=== PATIENT | female | born 1950 | race Asian ===

== ENCOUNTER 2017-05-12 00:05 | Inpatient (IN) | payer BC ==
[2017-05-12 00:45] LABS: APPEARANCE,URINE CLEAR; BILIRUBIN,URINE NEGATIVE (NEGATIVE); GLUCOSE, URINE NEGATIVE (NEGATIVE); KETONES,URINE NEGATIVE (NEGATIVE); LEUKOCYTE ESTERASE,URINE NEGATIVE (NEGATIVE); NITRITE,URINE NEGATIVE (NEGATIVE); PROTEIN,URINE NEGATIVE (NEGATIVE); URINE SPECIFIC GRAVITY 1.006; UROBILINOGEN,URINE NEGATIVE mg/dL (<2.0)
[2017-05-12] MEDS ORDERED: METHYLPREDNISOLONE INJ 125 MG/2 ML SDV IV ONE (00:46)
[2017-05-12] MEDS ORDERED: MAGNESIUM SULFATE/D5W 1 GM/100 ML RTUPB IV PRN (00:46)
[2017-05-12] MEDS ORDERED: IPRATROPIUM/ALBUTEROL 0.5-2.5 MG/3 ML AMPUL NEB ONE ×5 (00:46→04:29)
--- NOTE | 2017-05-12 00:51 | ER Document Report ---
ED Respiratory Problem - General Chief Complaint: Chest Pain Stated Complaint: CHEST PAIN,BREATHING PROBLEMS Time Seen by Provider: 05/12/17 00:46 Notes: Patient is a 66-year-old female who is a smoker who comes to emergency department for chief complaint of difficulty breathing, she has had a cough and some shortness of breath for several days but it became significantly worse over the course of yesterday. She denies fever, she states cough is nonproductive, she reports chest pain with cough but not otherwise. She denies vomiting, abdominal pain, dizziness. She denies any daily medications, denies any cardiac or diagnosed pulmonary history, she denies any daily medications. She does not have a primary care provider. - Related Data Allergies/Adverse Reactions: No Known Allergies Allergy (Unverified 05/06/14 17:23) Past Medical History - General Information source: Patient - Social History Smoking Status: Current Every Day Smoker Smoking Education Provided: Yes - <3 min Frequency of alcohol use: None Drug Abuse: None Lives with: Family Family History: Reviewed & Not Pertinent Patient has suicidal ideation: No Patient has homicidal ideation: No Pulmonary Medical History: Reports: Hx Pneumonia Renal/ Medical History: Denies: Hx Peritoneal Dialysis Past Surgical History: Reports: Hx Hysterectomy - complete - Immunizations Hx Diphtheria, Pertussis, Tetanus Vaccination: No Hx Pneumococcal Vaccination: 08/07/12 Review of Systems - Review of Systems Constitutional: No symptoms reported EENT: No symptoms reported Cardiovascular: See HPI Respiratory: See HPI Gastrointestinal: No symptoms reported Genitourinary: No symptoms reported Female Genitourinary: No symptoms reported Musculoskeletal: No symptoms reported Skin: No symptoms reported Hematologic/Lymphatic: No symptoms reported Neurological/Psychological: No symptoms reported Physical Exam - Vital signs Vitals: Temp Pulse Resp BP Pulse Ox 98.6 F 20 L 20 149/79 H 88 L 05/12/17 00:27 05/12/17 00:27 05/12/17 00:27 05/12/17 00:27 05/12/17 00:27 Interpretation: Normal - General General appearance: Alert, Anxious In distress: Mild - HEENT Head: Normocephalic, Atraumatic Eyes: Normal Pupils: PERRL - Respiratory Respiratory status: Respiratory distress, Labored, Tachypnea Breath sounds: Decreased air movement, Nonproductive cough, Rhonchi, Wheezing Chest palpation: Normal - Cardiovascular Rhythm: Regular. No: Tachycardia Heart sounds: Normal auscultation, S1 appreciated, S2 appreciated Murmur: No - Abdominal Inspection: Normal Distension: No distension Bowel sounds: Normal Tenderness: Nontender. No: Tender, Guarding Organomegaly: No organomegaly - Back Back: Normal, Nontender. No: Tender, CVA tenderness - Extremities General upper extremity: Normal inspection, Nontender, Normal color, Normal ROM , Normal temperature General lower extremity: Normal inspection, Nontender, Normal color, Normal ROM , Normal temperature, Normal weight bearing. No: Edema, Gordon's sign - Neurological Neuro grossly intact: Yes Cognition: Normal Orientation: AAOx4 [place] Coma Scale Eye Opening: Spontaneous Skye Coma Scale Verbal: Oriented Skye Coma Scale Motor: Obeys Commands Skye Coma Scale Total: 15 Speech: Normal Motor strength normal: LUE, RUE, LLE, RLE Sensory: Normal - Psychological Associated symptoms: Normal affect, Normal mood - Skin Skin Temperature: Warm Skin Moisture: Dry Skin Color: Normal Course - Re-evaluation Re-evalutation: Patient initially with tachypnea, hypoxia on room air, expiratory wheezes, rhonchi throughout lung castillo. No fever, no tachycardia, no hypotension. Patient immediately placed on 3 L nasal cannula, oxygenation improved to 93-95% . Tachypnea reduced. Given DuoNeb's, magnesium, Solu-Medrol. Afterwards tachypnea resolved but patient continues to have significant wheezing. Chest x-ray unremarkable, laboratory workup unremarkable including venous blood gas. On reevaluation patient is asking if she can leave. I advised that she is still breathing somewhat poorly even though she is improved, patient ambulated and her oxygenation dropped down to 84%. Patient agreed to stay after this and states now she does not want to go home. Discussed with Dr. Rangel, internal medicine, patient will be admitted to telemetry. - Vital Signs Vital signs: Temp Pulse Resp BP Pulse Ox 98.6 F 83 19 131/79 H 93 05/12/17 00:27 05/12/17 04:39 05/12/17 04:39 05/12/17 04:01 05/12/17 04:39 - Laboratory Result Diagrams: 05/12/17 01:00 05/12/17 01:00 Laboratory results interpreted by me: 05/12/17 01:00 Creatinine 0.51 L Glucose 146 H Discharge - Discharge Clinical Impression: COPD exacerbation, Hypoxia, Tobacco abuse Condition: Stable Disposition: ADMITTED INPATIENT Admitting Provider: Hospitalist Unit Admitted: Telemetry
[2017-05-12 01:26] LABS: VENOUS BLOOD BASE EXCESS 4.8 mmol/L; VENOUS BLOOD HCO3 31.1 mmol/L (20-32); VENOUS BLOOD PCO2 52.2 mmHg (35-63); VENOUS BLOOD PH 7.39 (7.30-7.42)
[2017-05-12 01:27] LABS: ABSOLUTE EOSINOPHILS # (AUTO) 0.1 10^3/uL (0.0-0.6); ABSOLUTE LYMPHOCYTES (AUTO) 2.2 10^3/uL (0.5-4.7); ABSOLUTE MONOCYTES (AUTO) 0.6 10^3/uL (0.1-1.4); ABSOLUTE NEUT (AUTO) 5.4 10^3/uL (1.7-8.2); BASOPHILS % (AUTO) 0.2 % (0-2); EOSINOPHILS % (AUTO) 1.5 % (0-6); HEMOGLOBIN 14.2 g/dL (12.0-15.5); HGB HCT DIFFERENCE 1.6; MEAN CORPUSCULAR HGB CONC 34.6 g/dL (32.0-36.0); MEAN CORPUSCULAR VOLUME 96 fl (80-97); MONOCYTES % (AUTO) 7.1 % (3-13); RED BLOOD COUNT 4.29 10^6/uL (3.72-5.28); RED CELL DISTRIBUTION WIDTH 13.3 % (11.5-14.0); SEGMENTED NEUTROPHILS % (AUTO) 65.2 % (42-78); WHITE BLOOD COUNT 8.3 10^3/uL (4.0-10.5)
[2017-05-12 01:40] LABS: ALANINE AMINOTRANSFERASE 36 U/L (9-52); ALBUMIN 3.9 g/dL (3.5-5.0); ALKALINE PHOSPHATASE 77 U/L (38-126); ANION GAP 10 (5-19); ASPARTATE AMINO TRANSFERASE 18 U/L (14-36); BILIRUBIN,DIRECT 0.4 mg/dL (0.0-0.4); BILIRUBIN,TOTAL 0.8 mg/dL (0.2-1.3); BLOOD UREA NITROGEN 8 mg/dL (7-20); CALCIUM 9.2 mg/dL (8.4-10.2); CARBON DIOXIDE 28 mmol/L (22-30); CHLORIDE 104 mmol/L (98-107); CREATINE KINASE 56 U/L (30-135); CREATININE RESULT 0.51 mg/dL (0.52-1.25); GLUCOSE 146 mg/dL (75-110); POTASSIUM 3.9 mmol/L (3.6-5.0); SODIUM 142.1 mmol/L (137-145); TOTAL PROTEIN 6.9 g/dL (6.3-8.2)
[2017-05-12 01:51] LABS: CREATINE KINASE MB 0.46 ng/mL (<4.55)
[2017-05-12 01:52] LABS: TROPONIN I < 0.012 ng/mL
--- NOTE | 2017-05-12 02:23 | RADIOLOGY REPORT (SQ) ---
EXAM DESCRIPTION: CHEST SINGLE VIEW CLINICAL HISTORY: 66 years, Female, difficulty breathing COMPARISON: May 06, 2014 chest radiograph. NUMBER OF VIEWS: None TECHNIQUE: [place] portable AP chest radiograph technique. LIMITATIONS: None. FINDINGS: Cardiac size and pulmonary vasculature are normal. Lungs are clear. No pleural effusions or pneumothorax. Bones appear osteopenic. No displaced fractures on this single view. IMPRESSION: Suspect osteopenia. Otherwise, normal portable AP chest radiograph. 2011 [employer]- All Rights Reserved
[2017-05-12] MEDS ORDERED: ACETAMINOPHEN 325 MG TABLET PO PRN (03:45)
[2017-05-12] MEDS ORDERED: PROMETHAZINE HCL 25 MG TABLET PO PRN (03:45)
[2017-05-12] MEDS ORDERED: IPRATROPIUM/ALBUTEROL 0.5-2.5 MG/3 ML AMPUL NEB PRN (03:46)
[2017-05-12] MEDS ORDERED: NORMAL SALINE 1000 ML 1,000 ML IV PRN (03:46)
[2017-05-12] MEDS ORDERED: GUAIFENESIN SYRP 200 MG/10 ML UDC PO PRN (05:16)
[2017-05-12] MEDS ORDERED: ALBUTEROL SULFATE 0.083% NEB 2.5 MG/3 ML AMPUL NEB PRN (05:16)
[2017-05-12] MEDS ORDERED: GLUCAGON,HUMAN RECOMB 1 MG INJ IM PRN (05:17)
[2017-05-12] MEDS ORDERED: DEXTROSE 40% GEL 15 GM TUBE PO PRN ×2 (05:17)
[2017-05-12] MEDS ORDERED: DEXTROSE 50%-WATER 25 GM/50 ML DISP.SYRIN IV PRN ×2 (05:17)
[2017-05-12] MEDS ORDERED: INSULIN LISPRO 100 UNIT/ML 3 ML VIAL SUBCUT PRN (05:17)
[2017-05-12] MEDS ORDERED: AZITHROMYCIN INJ 500 MG VIAL IV PRN (05:43)
--- NOTE | 2017-05-12 05:45 | PDOC H&P ---
History of Present Illness Admission Date/PCP: 05/12/17 03:48 No PCP Patient complains of: Respiratory difficulty History of Present Illness: PRIYANK KAPOOR is a 66 year old oriental female, long-term pack-a-day smoker, and with underlying non home O2 dependent COPD, who presents to the emergency room for evaluation of above complaint. She describes a several day history of mostly dry cough and shortness of breath. Shortness of breath in particular has significantly worsened over the past 24 hours. 92% on room air at rest; mid to upper 80 percentile when walking on room air. Denies fever chills, nausea vomiting, diarrhea or dysuria. Mild brief sharp chest pain, only with a cough. Never intubated for respiratory difficulty. No antibiotic use or hospitalization in the last 3 months. Patient has been discussed with emergency room nurse practitioner who evaluated the patient. Hospitalized basically for 24 hours May 06 - May 07, 2014 under previous primary care provider's service. Discharge diagnoses included atypical chest pain along with COPD exacerbation. History and physical/ discharge summary reviewed. Dictation via voice recognition software. Laboratory results are listed in [facility] and are reviewed. X-ray summary results are listed below, with full report(s) reviewed. . EKG reviewed. Social history/personal habits: . No children. Lives alone. Works at the local [employer]. One pack of cigarettes per day. No alcohol or illicit drug use. No known drug allergies. Home medications none REVIEW OF SYSTEMS: Constitutional: No fever or chills. Eyes: No vision complaints. ENT: No swallowing problems or complaints. Denies hearing loss. Pulmonary: See history and present illness. Cardiovascular: See history and present illness. Gastrointestinal: No current complaints, including nausea or vomiting. Skin: No current complaints, including rashes. Hematologic: Denies easy bruising. Neurologic: No current complaints, including numbness or tingling. Musculoskeletal: No current or chronic joint complaints, such as arthritis. Psychiatric: Denies anxiety or depression. Endocrine: No current complaints, including polyuria. Genitourinary: No current complaints, including dysuria. 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 4 feet 10 inches tall. 71.4 kg. BMI 32.9 kg/m. Blood pressure 131/79. Pulse 95 and regular. 93% saturation on 3 L oxygen per nasal cannula. Respirations are 17 and unlabored. Temperature 98.6. Slightly obese otherwise well-nourished though chronically ill-appearing [place] female who appears a number of years older than her stated age. Appears perhaps slightly fatigued, but awake alert pleasant and cooperative. Skin is warm and slightly moist. No grossly obvious evidence of rash in areas of skin examined. No subcutaneous nodules palpated. ENT: Hearing grossly normal to normal conversation. Tongue midline on protrusion pink and moist. Eyes: No scleral icterus. Pupils equal and reactive to light at 4 mm. [place] conjunctivae. Neck is supple and nontender to gentle active range of motion and palpation. Midline trachea. No palpable thyroid nodule mass enlargement or tenderness. Lymphatic: No palpable cervical or clavicular nodes. Neck and lymphatic exams limited by patient body habitus. Psychiatric: Reasonable insight into acute and chronic medical issues. Oriented to time location and why here. Lungs: Auscultation reveals equal breath sounds bilaterally. No use of accessory respiratory muscles. Coarse breath sounds with inspiratory and expiratory wheezing bilaterally. Coarse Breath sounds are audible without stethoscope. Cardiovascular: Heart regular rate and rhythm, without gallop murmur or rub. No carotid or abdominal aortic bruits. No ankle or pedal edema. Faintly palpable dorsalis pedis pulses. Abdomen:soft somewhat obese nontender with positive bowel sounds. Unable to adequately evaluate abdomen for masses or organomegaly due to body habitus. Extremities: Feet are warm and dry. No calf tenderness to compression. No grossly obvious visual evidence of calf swelling. Gentle manipulation of lower extremities fails to reveal any obvious evidence of injury or instability to knees hips or ankles. Neurologic: Moves upper extremities grossly normally. Patellar reflexes absent. Absent Babinski. Light touch is intact at feet. Dorsiflexion and plantarflexion of feet 5 / 5 and symmetric. Past Medical History Cardiac Medical History: Denies: Atrial Fibrillation, Congestive Heart Failure, Coronary Artery Disease, DVT, Myocardial Infarction, Hyperlipidema, Hypertension, Pulmonary Embolism Pulmonary Medical History: Reports: Chronic Obstructive Pulmonary Disease (COPD) , Pneumonia Denies: Asthma, Sleep Apnea EENT Medical History: Denies: Eyes, Ears, Throat Neurological Medical History: Denies: Hemorrhagic CVA, Ischemic CVA, Seizures Endocrine Medical History: Denies: Diabetes Mellitus Type 1, Diabetes Mellitus Type 2, Hyperthyroidism, Hypothyroidism Renal/ Medical History: Reports: None GI Medical History: Denies: Cirrhosis, Gastroesophageal Reflux Disease, Hepatitis, Peptic Ulcer Disease Musculoskeltal Medical History: Denies: Arthritis Skin Medical History: Reports: None Psychiatric Medical History: Reports: Tobacco Dependency Denies: Alcohol Dependency, Depression, General Anxiety Disorder, Substance Abuse Infectious Medical History: Denies: Hepatitis B, Hepatitis C Past Surgical History Past Surgical History: Reports: Hysterectomy - complete Social History Information Source: Patient, Emergency Med Personnel, [facility] Records Lives with: Alone Smoking Status: Current Every Day Smoker Frequency of Alcohol Use: None Hx Recreational Drug Use: No Hx Prescription Drug Abuse: No - Advance Directive Resuscitation Status: Full Code Surrogate healthcare decision maker:: Uncertain at this point in time. Family History Family History: Reviewed & Not Pertinent Parental Family History Reviewed: Yes - Father of cancer; mother in her 90s , basically healthy Children Family History Reviewed: NA Sibling(s) Family History Reviewed.: Yes - Healthy Medication/Allergy Home Medications: Albuterol Sulfate [Proair HFA] 1 - 2 puff IH Q4 PRN #1 inhaler 05/15/17 Levofloxacin [Levaquin 500 mg Tablet] 500 mg PO DAILY #4 tablet 05/15/17 Methylprednisolone [Medrol Dosepack (4 mg/Tab) 21 Tab/Dosepak] 4 mg PO ASDIR PRN #21 tab.ds.pk 05/15/17 Mometasone/Formoterol [Dulera 100 Mcg/5 Mcg Inhaler] 2 puff IH BID #1 hfa.aer.ad 05/15/17 Allergies/Adverse Reactions: No Known Allergies Allergy (Unverified 05/06/14 17:23) Physical Exam Vital Signs: Temp Pulse Resp BP Pulse Ox 98.6 F 83 19 131/79 H 93 05/12/17 00:27 05/12/17 04:39 05/12/17 04:39 05/12/17 04:01 05/12/17 04:39 Results Impressions: Chest X-Ray 05/12/17 00:50 IMPRESSION: Suspect osteopenia. Otherwise, normal portable AP chest radiograph. 2010 [employer]- All Rights Reserved Assessment & Plan - Diagnosis (1) COPD exacerbation Is this a current diagnosis for this admission?: Yes Plan: Patient will be admitted under COPD exacerbation protocol. Incentive spirometry twice a day. Scheduled DuoNeb's. As needed albuterol nebs. Solu-Medrol. Prevacid for gastritis prophylaxis Antibiotics will consist of intravenous Zithromax and Rocephin. I strongly encouraged patient to notify staff should patient feel that breathing is worsening. Patient is a full code. I have strongly encouraged patient not to get out of bed without notifying staff , to avoid a fall with injury. Knee high SCDs for DVT prophylaxis, along with subcutaneous Lovenox. Impression and plans were discussed with patient who concurs. Time spent in evaluation and management of patient: 68 minutes. (2) Hypoxia Is this a current diagnosis for this admission?: Yes (3) Tobacco abuse Is this a current diagnosis for this admission?: Yes Plan: As needed nicotine patch. - Time Time Spent: 50 to 70 Minutes Medications reviewed and adjusted accordingly: Yes Anticipated discharge: Home Within: within 72 hours - Inpatient Certification Based on my medical assessment, after consideration of the patient's comorbidities, presenting symptoms, or acuity I expect that the services needed warrant INPATIENT care.: Yes I certify that my determination is in accordance with my understanding of Medicare's requirements for reasonable and necessary INPATIENT services [42 CFR 412.3e].: Yes Medical Necessity: Need Close Monitoring Due to Risk of Patient Decompensation, Need For IV Fluids, Need For Continuous Telemetry Monitoring, Need for Nebulizer Therapy and Monitoring of Response, Need for IV Antibiotics, Risk of Complication if Not Cared For in Hospital Post Hospital Care: D/C or Transfer Summary
[2017-05-12] MEDS ORDERED: CEFTRIAXONE 1 GM/D5W RTU 1 GM/50 ML RTUPB IV ONE (06:00)
[2017-05-12] MEDS ORDERED: AZITHROMYCIN 500 MG in DEXTROSE 5%-WATER 250 ML IV ONE (06:00)
[2017-05-12] MEDS: NORMAL SALINE 1000 ML 1,000 ML IV PRN ×2 (06:01→18:46)
[2017-05-12 06:06] LABS: ADD ON TESTING BLD IN LAB ACKNOWLEDGE
[2017-05-12 06:20] LABS: MAGNESIUM 1.9 mg/dL (1.6-2.3)
[2017-05-12 06:52] LABS: VENOUS BLOOD BASE EXCESS 1.3 mmol/L; VENOUS BLOOD HCO3 28.8 mmol/L (20-32); VENOUS BLOOD PCO2 57.1 mmHg (35-63); VENOUS BLOOD PH 7.32 (7.30-7.42)
[2017-05-12] MEDS ORDERED: METHYLPREDNISOLONE INJ 40 MG/1 ML SDV IV ONE (08:00)
[2017-05-12] MEDS: IPRATROPIUM/ALBUTEROL 0.5-2.5 MG/3 ML AMPUL NEB SCH ×3 (08:08→20:34)
[2017-05-12] MEDS ORDERED: INFLUENZA ADLT QUAD (36MOS+) 2017-18 VAC 0.5 ML SYR IM PRN (08:38)
[2017-05-12] MEDS: ENOXAPARIN SODIUM INJ 40 MG/0.4 ML DISP.SYRIN SUBCUT SCH (09:25)
[2017-05-12] MEDS: LANSOPRAZOLE 30 MG TAB.RAP.DR PO SCH ×2 (09:26→17:13)
--- NOTE | 2017-05-12 10:57 | EKG REPORT ---
SEVERITY:- NORMAL ECG - SINUS RHYTHM : Confirmed by: Aminata Peres MD 12-May-2017 10:57:20
--- NOTE | 2017-05-12 10:59 | EKG REPORT ---
SEVERITY:- NORMAL ECG - SINUS RHYTHM : Confirmed by: Aminata Peres MD 12-May-2017 10:57:24
[2017-05-12] MEDS: METHYLPREDNISOLONE INJ 40 MG/1 ML SDV IV SCH ×2 (14:16→21:44)
[2017-05-13 05:37] LABS: ABSOLUTE LYMPHOCYTES (AUTO) 1.4 10^3/uL (0.5-4.7); ABSOLUTE MONOCYTES (AUTO) 0.4 10^3/uL (0.1-1.4); BASOPHILS % (AUTO) 0.2 % (0-2); HEMOGLOBIN 13.2 g/dL (12.0-15.5); HGB HCT DIFFERENCE 0.6; LYMPHOCYTES % (AUTO) 12.8 % (13-45); MEAN CORPUSCULAR HEMOGLOBIN 32.3 pg (27.0-33.4); MEAN CORPUSCULAR HGB CONC 33.8 g/dL (32.0-36.0); MEAN CORPUSCULAR VOLUME 96 fl (80-97); MONOCYTES % (AUTO) 3.9 % (3-13); RED BLOOD COUNT 4.08 10^6/uL (3.72-5.28); RED CELL DISTRIBUTION WIDTH 13.3 % (11.5-14.0); SEGMENTED NEUTROPHILS % (AUTO) 83.1 % (42-78); WHITE BLOOD COUNT 10.8 10^3/uL (4.0-10.5)
[2017-05-13 06:04] LABS: ANION GAP 10 (5-19); BLOOD UREA NITROGEN 15 mg/dL (7-20); CALCIUM 9.3 mg/dL (8.4-10.2); CARBON DIOXIDE 25 mmol/L (22-30); CHLORIDE 106 mmol/L (98-107); CREATININE RESULT 0.42 mg/dL (0.52-1.25); GLUCOSE 147 mg/dL (75-110); POTASSIUM 4.4 mmol/L (3.6-5.0)
[2017-05-13] MEDS: LANSOPRAZOLE 30 MG TAB.RAP.DR PO SCH ×2 (06:39→17:10)
[2017-05-13] MEDS: CEFTRIAXONE 1 GM/D5W RTU 1 GM/50 ML RTUPB IV SCH (06:40)
[2017-05-13] MEDS: METHYLPREDNISOLONE INJ 40 MG/1 ML SDV IV SCH ×3 (06:40→22:37)
[2017-05-13] MEDS: IPRATROPIUM/ALBUTEROL 0.5-2.5 MG/3 ML AMPUL NEB SCH ×3 (08:05→20:12)
[2017-05-13] MEDS: AZITHROMYCIN 500 MG in DEXTROSE 5%-WATER 250 ML IV SCH (08:56)
[2017-05-13] MEDS: ENOXAPARIN SODIUM INJ 40 MG/0.4 ML DISP.SYRIN SUBCUT SCH (10:22)
--- NOTE | 2017-05-13 15:50 | PDOC PROGRESS REPORT ---
Subjective Progress Note for:: 05/13/17 Subjective:: Patient states her breathing has improved. Patient states that she is able to take in deeper breaths. Patient states that she still is coughing quite frequently and occasionally coughing up phlegm. Physical Exam Vital Signs: Temp Pulse Resp BP Pulse Ox 98.0 F 89 24 H 128/71 H 94 05/13/17 12:05 05/13/17 14:14 05/13/17 14:14 05/13/17 12:05 05/13/17 14:30 Intake & Output 05/12/17 05/13/17 05/14/17 06:59 06:59 06:59 Intake Total 3425 1065 Output Total 0 Balance 3425 1065 Weight 74.3 kg General appearance: PRESENT: no acute distress, well-developed, well-nourished Head exam: PRESENT: atraumatic, normocephalic Eye exam: PRESENT: conjunctiva pink, EOMI. ABSENT: scleral icterus Ear exam: PRESENT: normal external ear exam Mouth exam: PRESENT: moist, tongue midline Neck exam: ABSENT: carotid bruit, JVD, lymphadenopathy, thyromegaly Respiratory exam: PRESENT: other - Positive for prolonged expiratory phase accessory muscle use wheezing heard in all lung castillo and rhonchi Cardiovascular exam: PRESENT: RRR. ABSENT: diastolic murmur, rubs, systolic murmur Pulses: PRESENT: normal dorsalis pedis pul Vascular exam: PRESENT: normal capillary refill GI/Abdominal exam: PRESENT: normal bowel sounds, soft. ABSENT: distended, guarding, mass, organolmegaly, rebound, tenderness Rectal exam: PRESENT: deferred Extremities exam: PRESENT: full ROM. ABSENT: calf tenderness, clubbing, pedal edema Neurological exam: PRESENT: alert, awake, oriented to person, oriented to place , oriented to time, oriented to situation, CN II-XII grossly intact. ABSENT: motor sensory deficit Psychiatric exam: PRESENT: appropriate affect, normal mood. ABSENT: homicidal ideation, suicidal ideation Skin exam: PRESENT: dry, intact, warm. ABSENT: cyanosis, rash Results Laboratory Results: 05/13/17 04:47 05/13/17 04:47 05/13/17 05/13/17 04:47 04:47 WBC 10.8 H RBC 4.08 Hgb 13.2 Hct 39.0 MCV 96 MCH 32.3 MCHC 33.8 RDW 13.3 Plt Count 232 Seg Neutrophils % 83.1 H Lymphocytes % 12.8 L Monocytes % 3.9 Eosinophils % 0.0 Basophils % 0.2 Absolute Neutrophils 9.0 H Absolute Lymphocytes 1.4 Absolute Monocytes 0.4 Absolute Eosinophils 0.0 Absolute Basophils 0.0 Sodium 141.0 Potassium 4.4 Chloride 106 Carbon Dioxide 25 Anion Gap 10 BUN 15 Creatinine 0.42 L Est GFR ( Amer) > 60 Est GFR (Non-Af Amer) > 60 Glucose 147 H Calcium 9.3 Impressions: Chest X-Ray 05/12/17 00:50 IMPRESSION: Suspect osteopenia. Otherwise, normal portable AP chest radiograph. 2010 [employer]- All Rights Reserved Assessment & Plan - Diagnosis (1) Acute respiratory failure with hypoxia Is this a current diagnosis for this admission?: Yes Plan: Secondary to COPD exacerbation: We will continue with steroids, breathing treatments, and antibiotics. (2) COPD exacerbation Is this a current diagnosis for this admission?: Yes Plan: Acute exacerbation of COPD: We will continue steroids, breathing treatments, and antibiotics. (3) Hyperglycemia Is this a current diagnosis for this admission?: Yes Plan: Most likely secondary to steroids: Will check hemoglobin A1c. Patient could possibly have glucose intolerance. (4) Tobacco abuse Is this a current diagnosis for this admission?: Yes Plan: Encourage discontinuation of tobacco use. (5) Chronic obstructive lung disease Is this a current diagnosis for this admission?: Yes Plan: Suspect COPD: Patient will need to follow with pulmonary as outpatient for PFTs. (6) DVT prophylaxis Is this a current diagnosis for this admission?: Yes Plan: Lovenox - Time Time Spent with patient: 15-24 minutes Anticipated discharge: Home - Inpatient Certification Medical Necessity: Need for Nebulizer Therapy and Monitoring of Response, Risk of Diagnosis Which Will Require Inpatient Eval/Care/Monitoring
[2017-05-14 05:10] LABS: ABSOLUTE LYMPHOCYTES (AUTO) 1.6 10^3/uL (0.5-4.7); ABSOLUTE MONOCYTES (AUTO) 0.2 10^3/uL (0.1-1.4); ABSOLUTE NEUT (AUTO) 8.7 10^3/uL (1.7-8.2); BASOPHILS % (AUTO) 0.5 % (0-2); HEMATOCRIT 42.8 % (36.0-47.0); HEMOGLOBIN 14.5 g/dL (12.0-15.5); HGB HCT DIFFERENCE 0.7; LYMPHOCYTES % (AUTO) 15.5 % (13-45); MEAN CORPUSCULAR HEMOGLOBIN 32.7 pg (27.0-33.4); MEAN CORPUSCULAR HGB CONC 33.9 g/dL (32.0-36.0); MEAN CORPUSCULAR VOLUME 97 fl (80-97); MONOCYTES % (AUTO) 2.2 % (3-13); RED BLOOD COUNT 4.43 10^6/uL (3.72-5.28); RED CELL DISTRIBUTION WIDTH 13.4 % (11.5-14.0); SEGMENTED NEUTROPHILS % (AUTO) 81.8 % (42-78); WHITE BLOOD COUNT 10.6 10^3/uL (4.0-10.5)
[2017-05-14 05:23] LABS: ANION GAP 14 (5-19); BLOOD UREA NITROGEN 18 mg/dL (7-20); CALCIUM 9.4 mg/dL (8.4-10.2); CARBON DIOXIDE 28 mmol/L (22-30); CHLORIDE 102 mmol/L (98-107); CREATININE RESULT 0.49 mg/dL (0.52-1.25); GLUCOSE 142 mg/dL (75-110); POTASSIUM 4.3 mmol/L (3.6-5.0); SODIUM 143.9 mmol/L (137-145)
[2017-05-14] MEDS: LANSOPRAZOLE 30 MG TAB.RAP.DR PO SCH ×2 (05:32→17:55)
[2017-05-14] MEDS: CEFTRIAXONE 1 GM/D5W RTU 1 GM/50 ML RTUPB IV SCH (05:32)
[2017-05-14] MEDS: METHYLPREDNISOLONE INJ 40 MG/1 ML SDV IV SCH ×3 (05:32→22:13)
[2017-05-14] MEDS: AZITHROMYCIN 500 MG in DEXTROSE 5%-WATER 250 ML IV SCH (06:49)
[2017-05-14] MEDS: IPRATROPIUM/ALBUTEROL 0.5-2.5 MG/3 ML AMPUL NEB SCH ×3 (08:41→20:14)
[2017-05-14] MEDS: ENOXAPARIN SODIUM INJ 40 MG/0.4 ML DISP.SYRIN SUBCUT SCH (09:54)
--- NOTE | 2017-05-14 14:53 | PDOC PROGRESS REPORT ---
Subjective Progress Note for:: 05/14/17 Subjective:: Pt states that she is feeling better. Pt states that she wants to get home to her dog soon. Physical Exam Vital Signs: Temp Pulse Resp BP Pulse Ox 98.2 F 65 20 132/64 H 93 05/14/17 11:19 05/14/17 14:00 05/14/17 11:19 05/14/17 11:19 05/14/17 11:19 Intake & Output 05/13/17 05/14/17 05/15/17 06:59 06:59 06:59 Intake Total 3425 2133 237 Output Total 0 Balance 3425 2133 237 Weight 74.3 kg 75.2 kg General appearance: PRESENT: no acute distress, well-developed, well-nourished Head exam: PRESENT: atraumatic, normocephalic Eye exam: PRESENT: conjunctiva pink, EOMI. ABSENT: scleral icterus Ear exam: PRESENT: normal external ear exam Mouth exam: PRESENT: moist, tongue midline Neck exam: ABSENT: carotid bruit, JVD, lymphadenopathy, thyromegaly Respiratory exam: PRESENT: decreased breath sounds, prolonged expiratory phas, wheezes Cardiovascular exam: PRESENT: RRR. ABSENT: diastolic murmur, rubs, systolic murmur Pulses: PRESENT: normal dorsalis pedis pul Vascular exam: PRESENT: normal capillary refill GI/Abdominal exam: PRESENT: normal bowel sounds, soft. ABSENT: distended, guarding, mass, organolmegaly, rebound, tenderness Rectal exam: PRESENT: deferred Extremities exam: PRESENT: full ROM. ABSENT: calf tenderness, clubbing, pedal edema Neurological exam: PRESENT: alert, awake, oriented to person, oriented to place , oriented to time, oriented to situation, CN II-XII grossly intact. ABSENT: motor sensory deficit Psychiatric exam: PRESENT: appropriate affect, normal mood. ABSENT: homicidal ideation, suicidal ideation Skin exam: PRESENT: dry, intact, warm. ABSENT: cyanosis, rash Results Laboratory Results: 05/14/17 04:58 05/14/17 04:58 05/14/17 05/14/17 04:58 04:58 WBC 10.6 H RBC 4.43 Hgb 14.5 Hct 42.8 MCV 97 MCH 32.7 MCHC 33.9 RDW 13.4 Plt Count 314 Seg Neutrophils % 81.8 H Lymphocytes % 15.5 Monocytes % 2.2 L Eosinophils % 0.0 Basophils % 0.5 Absolute Neutrophils 8.7 H Absolute Lymphocytes 1.6 Absolute Monocytes 0.2 Absolute Eosinophils 0.0 Absolute Basophils 0.0 Sodium 143.9 Potassium 4.3 Chloride 102 Carbon Dioxide 28 Anion Gap 14 BUN 18 Creatinine 0.49 L Est GFR ( Amer) > 60 Est GFR (Non-Af Amer) > 60 Glucose 142 H Calcium 9.4 05/12/17 08:30 Sputum Sputum Culture - Final Normal [place] Impressions: Chest X-Ray 05/12/17 00:50 IMPRESSION: Suspect osteopenia. Otherwise, normal portable AP chest radiograph. 2010 [employer]- All Rights Reserved Assessment & Plan - Diagnosis (1) Acute respiratory failure with hypoxia Is this a current diagnosis for this admission?: Yes Plan: Secondary to COPD exacerbation: We will continue with steroids, breathing treatments, and antibiotics. (2) COPD exacerbation Is this a current diagnosis for this admission?: Yes Plan: Acute exacerbation of COPD: We will continue steroids, breathing treatments, and antibiotics. (3) Hyperglycemia Is this a current diagnosis for this admission?: Yes Plan: Most likely secondary to steroids: hemoglobin A1c 5.3. (4) Tobacco abuse Is this a current diagnosis for this admission?: Yes Plan: Encourage discontinuation of tobacco use. (5) Chronic obstructive lung disease Is this a current diagnosis for this admission?: Yes Plan: Suspect COPD: Patient will need to follow with pulmonary as outpatient for PFTs. (6) DVT prophylaxis Is this a current diagnosis for this admission?: Yes Plan: Lovenox - Time Time Spent with patient: 15-24 minutes
[2017-05-15 05:20] LABS: ABSOLUTE LYMPHOCYTES (AUTO) 1.4 10^3/uL (0.5-4.7); ABSOLUTE MONOCYTES (AUTO) 0.3 10^3/uL (0.1-1.4); ABSOLUTE NEUT (AUTO) 7.8 10^3/uL (1.7-8.2); BASOPHILS % (AUTO) 0.2 % (0-2); HEMATOCRIT 40.8 % (36.0-47.0); HEMOGLOBIN 13.9 g/dL (12.0-15.5); HGB HCT DIFFERENCE 0.9; LYMPHOCYTES % (AUTO) 14.3 % (13-45); MEAN CORPUSCULAR HEMOGLOBIN 32.4 pg (27.0-33.4); MEAN CORPUSCULAR VOLUME 95 fl (80-97); RED BLOOD COUNT 4.29 10^6/uL (3.72-5.28); RED CELL DISTRIBUTION WIDTH 13.5 % (11.5-14.0); SEGMENTED NEUTROPHILS % (AUTO) 82.5 % (42-78); WHITE BLOOD COUNT 9.5 10^3/uL (4.0-10.5)
[2017-05-15 05:40] LABS: ANION GAP 13 (5-19); BLOOD UREA NITROGEN 18 mg/dL (7-20); CALCIUM 9.2 mg/dL (8.4-10.2); CARBON DIOXIDE 28 mmol/L (22-30); CHLORIDE 102 mmol/L (98-107); CREATININE RESULT 0.47 mg/dL (0.52-1.25); GLUCOSE 148 mg/dL (75-110); POTASSIUM 4.3 mmol/L (3.6-5.0); SODIUM 142.9 mmol/L (137-145)
[2017-05-15] MEDS: METHYLPREDNISOLONE INJ 40 MG/1 ML SDV IV SCH (05:58)
[2017-05-15] MEDS: CEFTRIAXONE 1 GM/D5W RTU 1 GM/50 ML RTUPB IV SCH (05:59)
[2017-05-15] MEDS: LANSOPRAZOLE 30 MG TAB.RAP.DR PO SCH (05:59)
[2017-05-15] MEDS: IPRATROPIUM/ALBUTEROL 0.5-2.5 MG/3 ML AMPUL NEB SCH (08:03)
[2017-05-15] MEDS: AZITHROMYCIN 500 MG in DEXTROSE 5%-WATER 250 ML IV SCH (08:58)
[2017-05-15] MEDS: ENOXAPARIN SODIUM INJ 40 MG/0.4 ML DISP.SYRIN SUBCUT SCH (10:58)
--- NOTE | 2017-05-15 11:02 | PDOC DISCHARGE SUMMARY ---
General - Admit/Disc Date/PCP Admission Date/Primary Care Provider: 05/12/17 05:16 Discharge Date: 05/15/17 - Discharge Diagnosis (1) Acute respiratory failure with hypoxia Is this a current diagnosis for this admission?: Yes Summary: Secondary to acute COPD exacerbation: Patient was admitted to the hospital where she was placed on steroids, breathing treatments and antibiotics. Patient demonstrated significant improvement and therefore was able to be weaned off of oxygen. Patient will be discharged home on oral steroids, antibiotics, and inhalers (2) COPD exacerbation Is this a current diagnosis for this admission?: Yes Summary: Patient was placed on breathing treatments, antibiotics, and steroids. Patient has done well. Patient was weaned off nasal cannula and switched over to oral medications. Patient will need a follow-up with pulmonary as outpatient. (3) Hyperglycemia Is this a current diagnosis for this admission?: Yes Summary: Patient's hemoglobin A1c was 5.8. Patient's hyperglycemia secondary to steroids. (4) Tobacco abuse Is this a current diagnosis for this admission?: Yes Summary: Patient encouraged to discontinue tobacco abuse. (5) Chronic obstructive lung disease Is this a current diagnosis for this admission?: Yes Summary: Patient has not been formally diagnosed with COPD however there is high suspicion that patient does have COPD. Patient will need to follow with pulmonary for pulmonary lung studies. - Additional Information Resuscitation Status: Full Code Discharge Diet: Cardiac Discharge Activity: Activity As Tolerated Home Medications: Albuterol Sulfate [Proair HFA] 1 - 2 puff IH Q4 PRN #1 inhaler 05/15/17 Levofloxacin [Levaquin 500 mg Tablet] 500 mg PO DAILY #4 tablet 05/15/17 Methylprednisolone [Medrol Dosepack (4 mg/Tab) 21 Tab/Dosepak] 4 mg PO ASDIR PRN #21 tab.ds.pk 05/15/17 Mometasone/Formoterol [Dulera 100 Mcg/5 Mcg Inhaler] 2 puff IH BID #1 [email or web address] 05/15/17 History of Present Illness Patient complains of: Shortness of breath History of Present Illness: PRIYANK KAPOOR is a 66 year old female presents with complaint of shortness of breath. Hospital Course Hospital Course: Patient is a 66-year-old female that presents to our facility with shortness of breath. Patient was found to be wheezing and using accessory muscles to breathe. Due to patient's long history of tobacco use high suspicion is for COPD therefore patient was treated for COPD exacerbation. Patient was placed on steroids, breathing treatments, and antibiotics and breathing did improve. Patient also was requiring nasal cannula however patient was able to be weaned off the nasal cannula. Patient was noted to have elevated blood glucose but this was secondary to steroids. Patient's hemoglobin A1c was 5.8. Therefore patient was encouraged to eat foods that were low in sugar and to avoid carbohydrates. Patient has done well throughout hospitalization. On day of discharge patient was ambulating around hallways without any oxygen. Physical Exam Vital Signs: Temp Pulse Resp BP Pulse Ox 97.8 F 63 24 H 151/81 H 99 05/15/17 07:28 05/15/17 08:03 05/15/17 08:03 05/15/17 07:28 05/15/17 08:03 Intake & Output 05/14/17 05/15/17 05/16/17 06:59 06:59 06:59 Intake Total 2133 1348 Balance 2133 1348 Weight 75.2 kg 71 kg General appearance: PRESENT: no acute distress, well-developed, well-nourished Head exam: PRESENT: atraumatic, normocephalic Eye exam: PRESENT: conjunctiva pink, EOMI. ABSENT: scleral icterus Ear exam: PRESENT: normal external ear exam Mouth exam: PRESENT: moist, tongue midline Neck exam: ABSENT: carotid bruit, JVD, lymphadenopathy, thyromegaly Respiratory exam: PRESENT: wheezes, other - Positive for wheezing slight prolonged expiratory phase however much improved. Cardiovascular exam: PRESENT: RRR. ABSENT: diastolic murmur, rubs, systolic murmur Pulses: PRESENT: normal dorsalis pedis pul Vascular exam: PRESENT: normal capillary refill GI/Abdominal exam: PRESENT: normal bowel sounds, soft. ABSENT: distended, guarding, mass, organolmegaly, rebound, tenderness Rectal exam: PRESENT: deferred Extremities exam: PRESENT: full ROM. ABSENT: calf tenderness, clubbing, pedal edema Neurological exam: PRESENT: alert, awake, oriented to person, oriented to place , oriented to time, oriented to situation, CN II-XII grossly intact. ABSENT: motor sensory deficit Psychiatric exam: PRESENT: appropriate affect, normal mood. ABSENT: homicidal ideation, suicidal ideation Skin exam: PRESENT: dry, intact, warm. ABSENT: cyanosis, rash Results Laboratory Results: 05/15/17 04:44 05/15/17 04:44 05/15/17 05/15/17 04:44 04:44 WBC 9.5 RBC 4.29 Hgb 13.9 Hct 40.8 MCV 95 MCH 32.4 MCHC 34.0 RDW 13.5 Plt Count 254 Seg Neutrophils % 82.5 H Lymphocytes % 14.3 Monocytes % 3.0 Eosinophils % 0.0 Basophils % 0.2 Absolute Neutrophils 7.8 Absolute Lymphocytes 1.4 Absolute Monocytes 0.3 Absolute Eosinophils 0.0 Absolute Basophils 0.0 Sodium 142.9 Potassium 4.3 Chloride 102 Carbon Dioxide 28 Anion Gap 13 BUN 18 Creatinine 0.47 L Est GFR ( Amer) > 60 Est GFR (Non-Af Amer) > 60 Glucose 148 H Calcium 9.2 05/12/17 08:30 Sputum Gram Stain - Final 05/12/17 08:30 Sputum Sputum Culture - Final Normal [place] Impressions: Chest X-Ray 05/12/17 00:50 IMPRESSION: Suspect osteopenia. Otherwise, normal portable AP chest radiograph. 2010 [employer]- All Rights Reserved Plan Time Spent: Greater than 30 Minutes - 35 mins
[2017-05-15 13:08] VITALS: BP 135/70
== END 2017-05-15 13:12 | disposition home or self-care (01) | DRG 190 ==
LOC: ER 00:05 → EH 03:48 → UNDOADMIN 03:48 → EH 05:16 → 3W 06:43 → EH 06:43
PROVIDERS: ADMIT Family Medicine; ATTEND Family Medicine
PROC: 3E0F73Z Introduction of Anti-inflammatory into Respiratory Tract, Via Natural or Artificial Opening (ICD-10-PCS; principal; 2017-05-12)
PROC: 3E0234Z Introduction of Serum, Toxoid and Vaccine into Muscle, Percutaneous Approach (ICD-10-PCS; 2017-05-15)
DX: J44.1 Chronic obstructive pulmonary disease with (acute) exacerbation (principal); J96.01 Acute respiratory failure with hypoxia; R73.9 Hyperglycemia, unspecified; T38.0X5A Adverse effect of glucocorticoids and synthetic analogues, initial encounter; M85.80 Other specified disorders of bone density and structure, unspecified site; E66.9 Obesity, unspecified; Z68.32 Body mass index [BMI] 32.0-32.9, adult; F17.200 Nicotine dependence, unspecified, uncomplicated; Z79.899 Other long term (current) drug therapy; Z23 Encounter for immunization; Z99.81 Dependence on supplemental oxygen; Z80.9 Family history of malignant neoplasm, unspecified
CPT/HCPCS: 36415; 71010; 80048; 80053; 81001; 82550; 82553; 82803; 82962; 83036; 83735; 84484; 85025; 87040; 87070; 87205; 90686; 93005; 93010; 94640; 94799; 96365; 96375; 99285; J0456; J0696; J1650; J1815; J2920; J2930; J3475; J3490; J7030; J7060; J7620

== ENCOUNTER 2017-07-27 20:05 | Emergency (ER) | payer BC, MEDICARE ==
--- NOTE | 2017-07-27 22:03 | ER Document Report ---
ED Extremity Problem, Upper - General Chief Complaint: Arm Pain Stated Complaint: RIGHT ARM PAIN Time Seen by Provider: 07/27/17 21:55 Mode of Arrival: Ambulatory Information source: Patient Notes: Patient is a 66-year-old female comes to the emergency room complaining of right arm pain. It is that it started today. 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 Patient is right-handed she has been working with the [email or web address] for quite a while and she goes every day chopping food with her right arm. Patient states it is hard to grab anything now she has some swelling in the wrist area. And it hurts to move it. Patient denies any history of hypertension or diabetes and she is concerned about her arm. She is due to work tomorrow and through the weekend. TRAVEL OUTSIDE OF THE [place] IN LAST 30 DAYS: No - HPI Patient complains to provider of: Pain, Swelling, Elbow, Forearm, Hand, Wrist Onset: This afternoon Recent injury: Possibly Where: Other - Unknown Quality of pain: Sharp, Stabbing, Throbbing, Other - Tingling Severity of pain: Moderate, Severe, Constant, Still present Pain Level: 3 Context: Other - Repetitive motion Associated symptoms: Numbness, Tingling. denies: None, Back pain, Chest pain/ discomfort, Chills, Dizziness, Fainted, Fever, Hurts to breathe, Jaw pain, Nausea, Neck pain, Seizure, Short of breath, Sweating, Vomiting, Other Exacerbated by: Movement Relieved by: Rest Similar symptoms previously: No Recently seen / treated by doctor: No - Related Data Allergies/Adverse Reactions: No Known Allergies Allergy (Unverified 05/06/14 17:23) Past Medical History - General Information source: Patient - Social History Smoking Status: Current Every Day Smoker Cigarette use (# per day): Yes - Half-pack a day Chew tobacco use (# tins/day): No Smoking Education Provided: Yes Frequency of alcohol use: None Drug Abuse: None Family History: Reviewed & Not Pertinent Patient has suicidal ideation: No Patient has homicidal ideation: No - Past Medical History Cardiac Medical History: Denies: Hx Atrial Fibrillation, Hx Congestive Heart Failure, Hx Coronary Artery Disease, Hx DVT, Hx Heart Attack, Hx Hypercholesterolemia, Hx Hypertension, Hx Pulmonary Embolism Pulmonary Medical History: Reports: Hx COPD, Hx Pneumonia Denies: Hx Asthma, Hx Sleep Apnea Neurological Medical History: Denies: Hx Seizures Endocrine Medical History: Denies: Hx Diabetes Mellitus Type 1, Hx Diabetes Mellitus Type 2, Hx Hyperthyroidism, Hx Hypothyroidism Renal/ Medical History: Denies: Hx Peritoneal Dialysis GI Medical History: Denies: Hx Cirrhosis, Hx Gastroesophageal Reflux Disease, Hx Hepatitis Musculoskeltal Medical History: Denies Hx Arthritis Psychiatric Medical History: Denies: Hx Depression Infectious Medical History: Denies: Hx Hepatitis Past Surgical History: Reports: Hx Hysterectomy - Immunizations Hx Diphtheria, Pertussis, Tetanus Vaccination: No Hx Pneumococcal Vaccination: 08/07/12 Review of Systems - Review of Systems Constitutional: No symptoms reported EENT: No symptoms reported Cardiovascular: No symptoms reported Respiratory: No symptoms reported Gastrointestinal: No symptoms reported Genitourinary: No symptoms reported Female Genitourinary: No symptoms reported Musculoskeletal: Joint pain, Joint swelling, Muscle pain, Muscle stiffness Skin: No symptoms reported Hematologic/Lymphatic: No symptoms reported Neurological/Psychological: No symptoms reported -: Yes All other systems reviewed and negative Physical Exam - Vital signs Vitals: Temp Pulse Resp BP Pulse Ox 98.2 F 77 22 H 150/76 H 94 07/27/17 20:27 07/27/17 20:27 07/27/17 20:27 07/27/17 20:27 07/27/17 20:27 Interpretation: Hypertensive - General General appearance: Alert, Other - Uncomfortable appearing In distress: Moderate - Respiratory Respiratory status: No respiratory distress Chest status: Nontender Breath sounds: Normal. No: Decreased air movement, Nonproductive cough, Productive cough, Rales, Rhonchi, Stridor, Wheezing, Other - Cardiovascular Rhythm: Regular Heart sounds: Normal auscultation Murmur: No - Extremities General upper extremity: Tender. No: Normal inspection, Nontender, Edema, Normal color, Normal ROM, Normal strength, Normal temperature, Other General lower extremity: Normal inspection, Normal ROM, Normal weight bearing Elbow: Tender, Limited ROM, Other - Examination of the elbow shows patient has some reproducible tenderness at the medial epicondyle on the elbow. She has numbness that radiates to it when the wrist is bent in extension. Forearm: Tender. No: Normal, Nontender, Abrasion, Deformity, Ecchymosis, Instability, Laceration, Other Wrist: Tender, Limited ROM, Other - Examination patient's right wrist and arm shows that she has some mild swelling that is noted across the entire forearm and wrist area. Patient has decreased suede brusher strength as well. She has a positive Phalen test and a positive Tinel's and median nerve strike she has tenderness at the medial epicondyle on the elbow. Hand: Normal, Other - Patient displays good cap refill in the nailbeds of the right hand. - Neurological Neuro grossly intact: Yes Cognition: Normal Orientation: AAOx4 [place] Coma Scale Eye Opening: Spontaneous [place] Coma Scale Verbal: Oriented [place] Coma Scale Motor: Obeys Commands [place] Coma Scale Total: 15 - Skin Skin Temperature: Warm Skin Moisture: Dry Skin Color: Normal, [place] Course - Vital Signs Vital signs: Temp Pulse Resp BP Pulse Ox 98 F 73 20 151/84 H 93 07/27/17 22:13 07/27/17 22:13 07/27/17 22:13 07/27/17 22:13 07/27/17 22:13 - Transfer of Care Notes: 07/27/17 22:45 Patient has a fairly classic case of carpal tunnel syndrome. She has repetitive motion she has been doing for an extended period of time. Her wrist is somewhat swollen although she has good cap refill in the nailbeds of the fingers. She has the positive test for carpal tunnel. We are placing her in a cock-up splint informed her that she needs to see an orthopedic surgeon and/or her doctor to get a referral to wound. Patient acknowledged. We will send her home with the cock-up splint some steroids and a little pain medication. Procedures - Immobilization Right Wrist Immobilizer type: Cock-up Performed by: PCT Post-Proc Neuro Vasc Exam: Normal Alignment checked and good: Yes Discharge - Discharge Clinical Impression: Carpal tunnel syndrome of right wrist Condition: Good Disposition: HOME, SELF-CARE Instructions: Carpal Tunnel Syndrome ([facility]) Additional Instructions: Use the splint for at least 10-12 days. Limited use of the right arm will help with the pain and discomfort. Ice to the wrist area will also help. Ibuprofen 3 times a day with food. And as we discussed you need to follow-up with an orthopedic physician for possible intervention on this problem. This is not one that is going to go away by itself most of the time unless she rested completely. We will try you on a course of steroids as well to help with the inflammation. Since you are not diabetic this should not affect you too much. Should you have any concerns or problems return to ER for recheck. Prescriptions: Methylprednisolone [Medrol Dosepack (4 mg/Tab) 21 Tab/Dosepak] 4 mg PO ASDIR PRN #21 tab.ds.pk PRN Reason: Forms: Elevated Blood Pressure, Smoking Cessation Education
[2017-07-27 22:13] VITALS: BP 151/84
[2017-07-27] MEDS ORDERED: KETOROLAC TROMETHAMINE 60 MG/2 ML SDV IM ONE (22:36)
[2017-07-27] MEDS ORDERED: HYDROCODONE/ACETAMINOPHEN 5-325 MG TABLET PO ONE (22:36)
[2017-07-27] MEDS ORDERED: KETOROLAC TROMETHAMINE INJ/PF 30 MG/1 ML SDV IM ONE (22:37)
[2017-07-27] MEDS ORDERED: HYDROCODONE/ACETAMINOPHEN 5-325 MG 6 TAB/DSPK PO PRN (22:51)
== END 2017-07-27 23:03 | disposition home or self-care (01) ==
LOC: ER 20:05
DX: G56.01 Carpal tunnel syndrome, right upper limb (principal); J44.9 Chronic obstructive pulmonary disease, unspecified; F17.210 Nicotine dependence, cigarettes, uncomplicated; Z71.6 Tobacco abuse counseling
CPT/HCPCS: 99283; 96372; L3908; J1885

== ENCOUNTER 2018-08-07 11:33 | Emergency (ER) | payer BC, MEDICARE ==
--- NOTE | 2018-08-07 12:55 | ER Document Report ---
ED Medical Screen (RME) - General Chief Complaint: Cough Stated Complaint: DIFFICULTY BREATHING Time Seen by Provider: 08/07/18 12:54 Notes: Patient says she is having difficulty breathing for the past 3 days. She has had a cough which is minimally productive. Believes she has had some intermittent fevers. History of pneumonia about a year ago. Patient has no history of any lung diseases although she smokes a pack of cigarettes a day. Denies any heart disease. TRAVEL OUTSIDE OF THE [place] IN LAST 30 DAYS: No - Related Data Allergies/Adverse Reactions: No Known Allergies Allergy (Unverified 05/06/14 17:23) Past Medical History - Social History Cigarette use (# per day): Yes - Smokes 1 pack of cigarettes a day. Chew tobacco use (# tins/day): No Frequency of alcohol use: None Drug Abuse: None Family history: Reviewed & Not Pertinent Pulmonary Medical History: Reports: Hx COPD, Hx Pneumonia Past Surgical History: Reports: Hx Hysterectomy - Immunizations Hx Diphtheria, Pertussis, Tetanus Vaccination: No History of Influenza Vaccine for 05/2017 - 10/2017 Season: No Review of Systems - Review of Systems Notes: REVIEW OF SYSTEMS: CONSTITUTIONAL : Denies fever. EENT: Denies eye, ear, nose or mouth or throat pain or other symptoms. CARDIOVASCULAR: Denies chest pain. RESPIRATORY: See HPI. GASTROINTESTINAL: Denies abdominal pain or nausea, vomiting, or diarrhea. GENITOURINARY: Denies difficulty or painful urinating, urinary frequency, blood in urine. MUSCULOSKELETAL: Denies back or neck pain. Denies joint pain or swelling. SKIN: Denies rash or skin lesions. NEUROLOGICAL: Denies LOC or altered mental status. Denies headache. Denies sensory loss or motor deficits. ALL OTHER SYSTEMS REVIEWED AND NEGATIVE. Physical Exam - Vital signs Vitals: Temp Pulse Resp BP Pulse Ox 97.9 F 76 24 H 131/77 H 93 08/07/18 11:41 08/07/18 11:41 08/07/18 11:41 08/07/18 11:41 08/07/18 11:41 Interpretation: Normal. No: Hypoxic Notes: PHYSICAL EXAMINATION: GENERAL: Well-appearing, in no acute distress. HEAD: Atraumatic, normocephalic. EYES: Pupils equal round and reactive to light, extraocular movements intact. ENT: oropharynx clear without exudates. Moist mucous membranes. NECK: Normal range of motion, supple. LUNGS: Breath sounds with good exchange of air. Diffuse expiratory wheezes front and back bilaterally but not tight. Does not appear short of breath. HEART: Regular rate and rhythm without murmurs. ABDOMEN: Soft, nontender. No guarding or rebound. No masses. BACK: No tenderness throughout entire back. EXTREMITIES: Normal range of motion without pain. No peripheral edema. Negative Homans bilaterally. NEUROLOGICAL: Normal speech, normal gait. Normal sensory, motor, and reflex exams. Awake, alert, and oriented x3. Cranial nerves normal. PSYCH: Normal mood, normal affect. SKIN: Warm, dry, no rashes. Course - Re-evaluation Re-evalutation: 08/07/18 20:40 Patient was given 60 mg of prednisone p.o. She was given 2 nebulizer treatments, one a DuoNeb and the second for albuterol alone. Labs were all essentially normal. Chest x-ray interpretation elsewhere in this report. Patient's lungs revealed only a few scattered wheezes after the second neb and it was felt that she could be discharged. She was encouraged to stop smoking. - Vital Signs Vital signs: Temp Pulse Resp BP Pulse Ox 98.6 F 85 20 114/63 92 08/07/18 14:52 08/07/18 14:52 08/07/18 14:52 08/07/18 14:52 08/07/18 14:52 - Laboratory Result Diagrams: 08/07/18 13:07 08/07/18 13:07 Laboratory results interpreted by me: 08/07/18 08/07/18 13:07 13:07 Hgb 16.0 H Hct 47.1 H Creatinine 0.42 L - Diagnostic Test Radiology reviewed: Pending, Image reviewed, Reports reviewed Radiology results interpreted by me: 08/07/18 20:39 Chest x-ray shows "mild diffuse bilateral interstitial pulmonary opacity which may reflect mild edema or atypical/viral infection no local airspace opacity. Patient's clinical presentation does not appear to me to be edema. More than likely it is a viral pulmonary infection. Doctor's Discharge - Discharge Clinical Impression: COPD exacerbation, Bronchitis Condition: Stable Disposition: HOME, SELF-CARE Additional Instructions: Chronic Obstructive Lung Disease You have chronic obstructive lung disease (COPD). The symptoms come from emphysema (damage to small airways, with trapping of air in large sacks in the lung) and chronic bronchitis (repeated infection and damage to larger airways). The cause is almost always cigarette smoking, although dust exposure, asthma, and infections contribute. You should avoid fumes, dust, and smoke (especially tobacco smoke). Your condition will flare from time to time. There is no cure, but the symptoms can be treated. Bronchodilators (asthma medicine) are often helpful. Antibiotics help when infection is present. When shortness of breath is severe, we may prescribe cortisone medication. If medicine doesn't help enough, we can arrange for you to have an oxygen tank at home. Notify your doctor at once if sputum becomes thick, foul, or bloody, if you develop a fever or chest pain, or if your shortness of breath worsens. Bronchitis You have acute bronchitis. This disease is an infection or inflammation of the air passageways in your lungs. Symptoms usually include cough, low grade fever, shortness of breath, and wheezing. The cough usually persists for a couple of weeks. Most cases of bronchitis get better without antibiotics. We prescribe antibiotics when we believe bacteria are damaging your airways, or if there's high risk the bronchitis will worsen into pneumonia. Increase your fluid intake. A cool mist humidifier may make your lungs more comfortable. An expectorant (cough medicine that loosens phlegm) can help. If you smoke, STOP!!! Recovery from bronchitis can be somewhat slow, but you should see improvement within a day or two. Repeated episodes of bronchitis may result in lung damage -- for example, chronic bronchitis, recurrent pneumonias, or emphysema. Call the doctor if you develop increasing fever, shortness of breath, chest pain, bloody sputum, or otherwise worsen. If you have not improved at all after several days, contact the physician. BRONCHOSPASM: You have tightness in the bronchial tubes, called bronchospasm. This often occurs with bronchial infections. Allergies, inhaled chemicals, and polluted or cold air can also provoke bronchospasm. It's more likely in patients with asthma in the family. Emergency treatment of bronchospasm may include adrenaline shots or bronchodilator aerosol. You may feel lightheaded and have a rapid pulse for an hour or two. Rest and get plenty of fluids. At home, we'll treat you with a bronchodilator inhaler. Antibiotics and corticosteroids may be required for some patients. Until you recover, avoid chemical fumes, dusts, pollens, and exercising in very cold or dry air. If you smoke, stop now!! If you develop a fever, increased wheezing, chest pain, or severe shortness of breath, you should contact the doctor immediately. INHALED BRONCHODILATORS: You have received a treatment of and/or prescription for an inhaled bronchodilator -- a medication which stimulates the airways in the lung to dilate. This improves the flow of air in asthma, bronchitis, and emphysema. These medicines have some similarity to adrenaline, and can cause similar side effects: shakiness, racing heart, and a sense of nervousness. These side effects decrease with time. Contact your doctor if these side effects are severe. Do not over-use the medicine. Too-frequent use of the inhaler may make it ineffective. Call your doctor if the inhaler is not controlling your symptoms at the prescribed doses. STEROID MEDICATION: You have been given an injection of or oral medicine of the cortisone/steroid class. This medication is used to control inflammation or allergy. Magdaleno t is usually only given for a short period of time, until the acute process subsides. There are usually no side effects from short-term use of cortisone-like medications. Some persons feel an increased sense of well-being and are not sleepy at bedtime. Long-term use of cortisone medications is best avoided, unless required for a severe condition. If your condition does not remit, or relapses after the course of corticosteroid medication, you should consult your physician. Azithromycin Azithromycin (Zithromax) is a broad spectrum antibiotic in the same class as erythromycin. It can treat a variety of bacterial infections, but is most frequently used for respiratory infections. Azithromycin is extremely long-lasting. It accumulates in body tissues and continues to kill bacteria for many days. In order to improve absorption, Azithromycin should be taken at least one hour before or two hours after a meal. It does not have the same strong tendency to upset the stomach as erythromycin and is usually very well tolerated. Patients who have had a rash or other true allergic reactions to erythromycin should not take this medication. Call if you develop gastrointestinal distress, severe diarrhea, rash, hives, itching, or shortness of breath. SMOKING: If you smoke, you should stop smoking. The tar and chemicals in cigarette smoke are harmful. Smoking has been shown to cause: emphysema chronic bronchitis lung cancer mouth and throat cancer stomach and pancreas cancer premature aging defects In addition, smoking increases ear and lung infections in children of smokers. FOLLOW-UP CARE: If you have been referred to a physician for follow-up care, call the physicians office for an appointment as you were instructed or within the next two days. If you experience worsening or a significant change in your symptoms, notify the physician immediately or return to the Emergency Department at any time for re-evaluation. Prescriptions: Albuterol Sulfate [Proair HFA Inhalation Aerosol 8.5 gm MDI] 2 puff IH Q4H PRN #1 mdi PRN Reason: Azithromycin [Zithromax 250 mg Tablet] 250 mg PO ASDIR PRN #6 tablet PRN Reason: Prednisone [Deltasone 10 mg Tablet] 10 mg PO ASDIR PRN #21 tablet PRN Reason: Forms: Return to Work
[2018-08-07] MEDS ORDERED: IPRATROPIUM/ALBUTEROL 0.5-2.5 MG/3 ML AMPUL NEB ONE (12:56)
[2018-08-07] MEDS ORDERED: PREDNISONE 20 MG TABLET PO ONE (12:57)
[2018-08-07 13:31] LABS: ABSOLUTE EOSINOPHILS # (AUTO) 0.1 10^3/uL (0.0-0.6); ABSOLUTE LYMPHOCYTES (AUTO) 1.7 10^3/uL (0.5-4.7); ABSOLUTE MONOCYTES (AUTO) 0.5 10^3/uL (0.1-1.4); ABSOLUTE NEUT (AUTO) 3.1 10^3/uL (1.7-8.2); BASOPHILS % (AUTO) 0.3 % (0-2); EOSINOPHILS % (AUTO) 1.7 % (0-6); HEMATOCRIT 47.1 % (36.0-47.0); LYMPHOCYTES % (AUTO) 31.7 % (13-45); MEAN CORPUSCULAR HEMOGLOBIN 32.4 pg (27.0-33.4); MEAN CORPUSCULAR VOLUME 96 fl (80-97); MONOCYTES % (AUTO) 9.9 % (3-13); PLATELET COUNT 234 10^3/uL (150-450); RED BLOOD COUNT 4.94 10^6/uL (3.72-5.28); RED CELL DISTRIBUTION WIDTH 13.1 % (11.5-14.0); SEGMENTED NEUTROPHILS % (AUTO) 56.4 % (42-78); TOTAL CELLS COUNTED % (AUTO) 100 %; WHITE BLOOD COUNT 5.5 10^3/uL (4.0-10.5)
[2018-08-07 13:37] LABS: ALANINE AMINOTRANSFERASE 45 U/L (9-52); ALBUMIN 4.4 g/dL (3.5-5.0); ALKALINE PHOSPHATASE 66 U/L (38-126); ANION GAP 7 (5-19); ASPARTATE AMINO TRANSFERASE 32 U/L (14-36); BILIRUBIN,DIRECT 0.3 mg/dL (0.0-0.4); BILIRUBIN,TOTAL 0.6 mg/dL (0.2-1.3); BLOOD UREA NITROGEN 10 mg/dL (7-20); CALCIUM 9.2 mg/dL (8.4-10.2); CARBON DIOXIDE 29 mmol/L (22-30); CHLORIDE 103 mmol/L (98-107); GLUCOSE 81 mg/dL (75-110); POTASSIUM 4.5 mmol/L (3.6-5.0); SODIUM 138.5 mmol/L (137-145); TOTAL PROTEIN 7.6 g/dL (6.3-8.2)
[2018-08-07] MEDS ORDERED: ALBUTEROL SULFATE 0.083% NEB 2.5 MG/3 ML AMPUL NEB ONE (13:38)
--- NOTE | 2018-08-07 14:08 | RADIOLOGY REPORT (SQ) ---
EXAM DESCRIPTION: CHEST 2 VIEWS COMPLETED DATE/TIME: 08/07/2018 1:33 pm REASON FOR STUDY: Difficulty breathing and wheezing. COMPARISON: 05/06/2014 EXAM PARAMETERS: NUMBER OF VIEWS: two views TECHNIQUE: Digital Frontal and Lateral radiographic views of the chest acquired. RADIATION DOSE: NA LIMITATIONS: none FINDINGS: LUNGS AND PLEURA: Mild diffuse bilateral interstitial pulmonary opacity. MEDIASTINUM AND HILAR STRUCTURES: No masses or contour abnormalities. HEART AND VASCULAR STRUCTURES: Heart normal size. No evidence for failure. BONES: No acute findings. HARDWARE: None in the chest. OTHER: No other significant finding. IMPRESSION: Mild diffuse bilateral interstitial pulmonary opacity, which may reflect mild edema or a typical/viral infection. There is no focal airspace opacity. TECHNICAL DOCUMENTATION: JOB ID: [id number] [employer]- All Rights Reserved Reading location - IP/workstation name: [email or web address]
--- NOTE | 2018-08-07 14:16 | EKG REPORT ---
SEVERITY:- NORMAL ECG - SINUS RHYTHM : Confirmed by: Aminata Peres MD 07-Aug-2018 14:16:28
[2018-08-07 14:54] VITALS: BP 114/63
== END 2018-08-07 14:56 | disposition home or self-care (01) ==
LOC: ER 11:33
DX: J44.1 Chronic obstructive pulmonary disease with (acute) exacerbation (principal); J40 Bronchitis, not specified as acute or chronic; R05 Cough; F17.210 Nicotine dependence, cigarettes, uncomplicated; Z87.01 Personal history of pneumonia (recurrent)
CPT/HCPCS: 93005; 94640 ×2; 99285; 36415; 85025; 80053; 84484; 71046; 93010; A9270 ×3; J7512; J7620

== ENCOUNTER 2018-11-04 10:33 | Emergency (ER) | payer BC, MEDICARE ==
--- NOTE | 2018-11-04 10:46 | ER Document Report ---
ED Medical Screen (RME) - General Chief Complaint: Leg Pain Stated Complaint: LEG PAIN Time Seen by Provider: 11/04/18 10:45 Mode of Arrival: Ambulatory Information source: Patient TRAVEL OUTSIDE OF THE [place] IN LAST 30 DAYS: No - HPI Patient complains to provider of: R leg pain Onset: Yesterday - pt with h/o R leg pain for the past day. Denies h/o trauma - Related Data Allergies/Adverse Reactions: No Known Allergies Allergy (Verified 11/04/18 10:36) Past Medical History - Social History Family history: Reviewed & Not Pertinent - Past Medical History Cardiac Medical History: Denies: Hx Atrial Fibrillation, Hx Congestive Heart Failure, Hx Coronary Artery Disease, Hx DVT, Hx Heart Attack, Hx Hypercholesterolemia, Hx Hypertension, Hx Pulmonary Embolism Pulmonary Medical History: Reports: Hx COPD, Hx Pneumonia Denies: Hx Asthma, Hx Sleep Apnea Neurological Medical History: Denies: Hx Seizures Endocrine Medical History: Denies: Hx Diabetes Mellitus Type 1, Hx Diabetes Mellitus Type 2, Hx Hyperthyroidism, Hx Hypothyroidism Renal/ Medical History: Denies: Hx Peritoneal Dialysis GI Medical History: Denies: Hx Cirrhosis, Hx Gastroesophageal Reflux Disease, Hx Hepatitis Musculoskeltal Medical History: Denies Hx Arthritis Psychiatric Medical History: Denies: Hx Depression Infectious Medical History: Denies: Hx Hepatitis Past Surgical History: Reports: Hx Hysterectomy - Immunizations Hx Diphtheria, Pertussis, Tetanus Vaccination: No History of Influenza Vaccine for 05/2017 - 10/2017 Season: No Physical Exam - Vital signs Vitals: Temp Pulse Resp BP Pulse Ox 98.2 F 87 15 137/80 H 91 L 11/04/18 10:38 11/04/18 10:38 11/04/18 10:38 11/04/18 10:38 11/04/18 10:38 Course - Vital Signs Vital signs: Temp Pulse Resp BP Pulse Ox 98.2 F 87 15 137/80 H 91 L 11/04/18 10:38 11/04/18 10:38 11/04/18 10:38 11/04/18 10:38 11/04/18 10:38
[2018-11-04 11:09] LABS: ABSOLUTE BASOPHILS # (AUTO) 0.1 10^3/uL (0.0-0.2); ABSOLUTE EOSINOPHILS # (AUTO) 0.1 10^3/uL (0.0-0.6); ABSOLUTE LYMPHOCYTES (AUTO) 2.1 10^3/uL (0.5-4.7); ABSOLUTE MONOCYTES (AUTO) 0.5 10^3/uL (0.1-1.4); ABSOLUTE NEUT (AUTO) 4.1 10^3/uL (1.7-8.2); BASOPHILS % (AUTO) 0.7 % (0-2); EOSINOPHILS % (AUTO) 0.9 % (0-6); HEMATOCRIT 45.9 % (36.0-47.0); LYMPHOCYTES % (AUTO) 31.2 % (13-45); MEAN CORPUSCULAR HEMOGLOBIN 32.5 pg (27.0-33.4); MEAN CORPUSCULAR HGB CONC 34.8 g/dL (32.0-36.0); MEAN CORPUSCULAR VOLUME 93 fl (80-97); MONOCYTES % (AUTO) 7.4 % (3-13); PLATELET COUNT 260 10^3/uL (150-450); RED BLOOD COUNT 4.91 10^6/uL (3.72-5.28); RED CELL DISTRIBUTION WIDTH 14.1 % (11.5-14.0); SEGMENTED NEUTROPHILS % (AUTO) 59.8 % (42-78); TOTAL CELLS COUNTED % (AUTO) 100 %; WHITE BLOOD COUNT 6.9 10^3/uL (4.0-10.5)
[2018-11-04 11:22] LABS: ALANINE AMINOTRANSFERASE 35 U/L (9-52); ALBUMIN 4.3 g/dL (3.5-5.0); ALKALINE PHOSPHATASE 66 U/L (38-126); ANION GAP 8 (5-19); ASPARTATE AMINO TRANSFERASE 20 U/L (14-36); BILIRUBIN,DIRECT 0.4 mg/dL (0.0-0.4); BILIRUBIN,TOTAL 1.1 mg/dL (0.2-1.3); BLOOD UREA NITROGEN 10 mg/dL (7-20); CALCIUM 9.5 mg/dL (8.4-10.2); CARBON DIOXIDE 27 mmol/L (22-30); CHLORIDE 103 mmol/L (98-107); GLUCOSE 97 mg/dL (75-110); POTASSIUM 4.5 mmol/L (3.6-5.0); TOTAL PROTEIN 7.8 g/dL (6.3-8.2)
--- NOTE | 2018-11-04 11:35 | VASCULAR PRELIM REPORT ---
"Provider Note Provider Note: Quantitative Vascular Measurements in Arterial Occlusive Disease Randy Ahuja, Buddy Shultz, Yee Ashley, Eloy Torrez, Sonia Jackson, Ashley Arboleda, Osito Simeon, Joaquina Packer, Donn Wyatt Author Affiliations Published Online:Apr 07 [email or web address] Sections PDF Tools Share Abstract Accuracy in quantifying arterial occlusive disease requires an understanding of the relevant technical considerations and familiarity with the strengths and weaknesses of various imaging modalities in this setting. The degree of stenosis is evaluated in terms of diameter stenosis, which can be measured on either projection images or cross-sectional images, or area stenosis, which can be angle sured only on cross-sectional images. With projection images, the minimum luminal diameter should be sought on multiple images obtained at different angles. The reference site used for measurement should be noted and may be located at the level of the lesion or in a normal-looking portion of the stenotic vessel near the lesion. Multidetector row computed tomographic (CT) angiography and magnetic resonance (MR) angiography are starting to replace digital subtraction angiography in quantifying arterial occlusive disease. CT angiography allows accurate evaluation without reducing in-plane resolution, although beam-hardening artifacts from high-attenuation structures can degrade image quality. MR angiography is useful even in cases of severe calcification but has a lower spatial resolution. Ultrasonography (US) may also be helpful in quantifying arterial occlusive disease; US analysis is almost always based on blood flow velocity measurement. Precise measurements of stenotic occlusion will help determine optimal therapy for affected patients. [facility], 2005 Introduction In assessing patients with arterial occlusive disease, quantitative analysis of the degree of arterial steno-occlusive change is essential for determining optimal therapy. Digital subtraction angiography (DSA) has long been the standard of reference for quantitative measurement. However, other imaging modalities such as multidetector row computed tomographic (CT) angiography, magnetic resonance (MR) angiography, ultrasonography (US), and intravascular US are also used for vascular analysis, and under some conditions DSA may not be the standard of reference. In this article, we review technical considerations in the quantitative measurement of arterial occlusive disease. In addition, we discuss and illustr ate the use of the aforementioned imaging modalities as well as various postprocessing techniquesmultiplanar reformation (MPR), volume rendering (VR), maximum intensity projection (MIP), and curved planar reformation (CPR)in this setting. We also discuss specific issues relating to the quantification of arterial occlusive disease in selected arteries, including the internal carotid artery (ICA), renal arteries, and lower extremity arteries. Technical Considerations For quantitative measurement of stenotic occlusion, the residual lumen at the lesion site is compared with the lumen at a reference site. The degree of occlusion is measured in terms of the diameter or area of stenosis. The percentage of stenosis is calculated as (1 ? L/R) 100, where L and R are the area or diameter of the lesion and of the reference site, respectively. Reference Site There are two methods of assigning the reference site (,Fig 1). In the first method, a normal-looking portion of the stenotic vessel either proximal or distal to the lesion serves as the reference site. In the second method, the reference site is located at the level of the lesion. The percentage of stenosis may differ according to the location of the reference site (,1,,2). Diameter Stenosis Traditionally, only diametric measurements have been used for the evaluation of stenosis because the images provided by catheter-based angiography, which for many years has been the standard of reference in this setting, are projection images of the affected vessel, making diameter stenosis measurable but not area stenosis. For evaluating diameter stenosis, the minimum luminal diameter at a target site is determined. The projection image should be generated at an angle that allows measurement of the minimum luminal diameter; this dimension may be unmeasurable in cases of eccentric stenosis with images generated at suboptimal angles (,Fig 2). In contrast, on cross-sectional images, the minimum luminal diameter can be measured accurately without difficulty (,Fig 2). Area Stenosis Some reports state that a reduction in cross-sectional area correlates better with the hemodynamic effect of stenosis than does a reduction in diameter (,3). Therefore, change in cross-sectional area has been proposed as a more accurate way of measuring arterial stenosis (,4). Evaluation with true cross-sectional images that are oriented perpendicular to the affected vessel is essential for quantification of area stenosis. Such evaluation is relatively time consuming if the border of the lumen is traced manually. Software programs (eg, [employer]; [employer], [place], [place]) are now commercially available that can measure area stenosis automatically and help reduce the amount of time required for analysis. Relationship between Diameter and Area Stenosis It is important to note whether an arterial stenosis is measured in terms of diameter or area because the two percentages do not correspond (,3). ,Figure 3 illustrates the relationship between area reduction and diameter reduction in cases of completely concentric stenosis: The degree of area reduction is greater than the degree of diameter reduction, unless there is either no stenosis (0% reduction) or total occlusion (100% reduction). In cases of eccentric stenosis, the relationship between area and diameter reduction is not constant. Imaging in the Quantification of Stenosis In the evaluation of arterial stenosis, the inherent strengths and limitations (eg, with respect to spatial resolution [,Table 1] or artifacts) of the imaging modality being used should be considered to ensure accurate quantification. Digital Subtraction Angiography As mentioned earlier, for many years DSA has been the standard of reference for quantifying arterial stenosis. Despite the emergence of other less invasive modalities that provide high-quality images, DSA is still used as a diagnostic tool for several reasons. DSA yields findings that are easy to interpret and can depict the whole target artery with a higher spatial resolution than multidetector row CT angiography or MR angiography (,Table 1). In addition, DSA allows easier, more accurate lumen evaluation in calcified vessels than does multidetector row CT angiography and in vessels containing stents than do multidetector row CT angiography and MR angiography owing to fewer artifacts from calcification or metal structures, although an extremely dense structure may still cause some problems. However, DSA also has some shortcomings. This modality is a kind of luminography that provides little information about vessel wall morphology or the course of the vessel at the occluded segment. Because DSA yields two- dimensional (2D) images, multiple views are obtained at different angles for the evaluation of stenosis. Even with multiple views, however, eccentric stenosis or stenosis of a tortuous vessel may be underestimated (,5). Overlapping vessels may also interfere with the assessment of stenosis (,Fig 4,). Rotational DSA better depicts stenosis than does DSA in two or three projections (,6). Because projection images but not cross-sectional images can be used for quantification, only diameter reduction can be measured with DSA. The minimum luminal diameter should be sought on multiple views obtained at different angles. Treatment planning requires both (a) the ratio between the diameters of the stenosis and reference site and (b) the absolute value of the luminal diameter. In DSA, the shorter the distance between the x-ray source and the target vessel, the greater the magnification of the projected image. The obliquity of the angle between the x-ray source and the target vessel also influences luminal diameter measurement. Therefore, calibration to the correct geometric magnification is essential. This calibration is performed with use of a known distance (eg, catheter diameter in the catheter method, four radiopaque dots arranged in a square in the dot method, or a radiopaque grid in the grid method) (,7). MultiDetector Row CT Angiography Current multidetector row CT provides high-resolution isotropic volume data that have almost equal submillimeter resolution along the x-y plane and the z axis (,Table 1). A major advantage of multidetector row CT angiography is that it can provide information about extraluminal structures, wall status (eg, calcifications, plaques), and the course of an occluded vessel, in addition to information made available with intraluminal contrast materialenhanced imaging. All of this information is essential for the success of an interventional procedure. Furthermore, optimal window width and level settings allow differentiation between luminal enhancement and adjacent high-attenuation structures such as calcifications and indwelling stents. A shortcoming of multidetector row CT angiography is that dense calcification may degrade the accuracy of the evaluation of stenosis due to beam-hardening artifacts. With current workstations, both original axial CT scans and reformatted images can be assessed (,8). Processed images used for vascular evaluation usually include MPR images, VR images, MIP images, and CPR images. Each display technique has strengths and weaknesses with regard to quantification (,Fig 5,,,,, ,Table 2). It is recommended that all of these techniques be used for comprehensive evaluation of arterial stenosis. Postprocessing Techniques Multiplanar Reformation. With MPR, any desired 2D section, whether oriented longitudinal or perpendicular to the target vessel, can be generated from a stack of CT scans. Isotropic data sets obtained with current multidetector row CT allow generation of any sectional MPR images without reducing in-plane resolution. Cross-sectional MPR images are very useful for quantitative analysis because they accurately depict lumen shape (,9,,10). One drawback of using cross- sectional MPR is that it is more difficult to get an overview of the arteries an d to determine lesion length than with VR, MIP, or CPR. Another drawback of cross-sectional MPR is that image generation is time consuming, especially in tortuous vessels. Currently available software programs allow prompt generation of cross-sectional MPR images, thereby facilitating cross-sectional analysis (,Fig 6,,,,,,), although manually corrected image generation may be required in cases in which automated generation is unsuitable (eg, in calcified or bifurcating vessels) (,11). Both diameter reduction and area reduction can be measured with use of cross-sectional MPR images. Volume Rendering. In generating a VR image, the CT values used to construct the image are assigned as either visible or invisible, with the visible values displayed in various colors and at various enhancement levels (,8). The role of VR in multidetector row CT angiography is to provide an overview of the target vessel (,Fig 6a,,,,,,), since VR yields three-dimensional images that can be rotated on a workstation. However, VR has two drawbacks: (a) The appearance of the lumen can vary according to the threshold value, and (b) mural calcification or an indwelling stent may make evaluation of the vessel difficult. Maximum Intensity Projection. In MIP, the highest CT value along any viewing ray from the desired direction is extracted and projected onto the image. Although depth information about the spatial relationship to anatomic structures perpendicular to the projection ray is lost, the image can be rotated and viewed from any angle on a workstation to avoid the interposition of structures other than the target vessel. The bone elimination technique or partial MIP excluding bone attenuation is essential for processing vascular MIP images. The role of MIP in multidetector row CT angiography is to generate a DSA-like image and provide an overview of the target vessel. MIP is not suitable for the evaluation of stenosis in cases of dense calcification or indwelling stents, which may obscure contrast material in the lumen (,Fig 7a,). Curved Planar Reformation. A CPR image is a 2D image that is created by sampling CT volume data along an expected curved plane. A plane oriented along the longitudinal axis of the target vessel is usually used for vascular analysis (,,Fig 7b). The role of CPR in multidetector row CT angiography is to depict the distribution of stenosis, along with mural plaques and calcifications (,,,,,,Fig 6f,). A drawback of CPR is that the value of the vascular images that are created depends on the course of the curved plane that is selected, with the possibility of generating an erroneous appearance of stenosis. MR Angiography [id number] and contrast-enhanced MR angiography are widely used for arterial analysis, although contrast-enhanced MR angiograms are usually of better quality and take much less time to acquire. An advantage of MR angiography for quantitative measurement is that it has little artifact from calcification, although dense calcification may contribute to local susceptibility-related artifacts (,12). Even when an artery is severely calcified, MR angiography can depict the luminal configuration, whereas CT may not (,Fig 8,,). Furthermore, there is no need for bone elimination when generating three-dimensional images from MR angiographic data, which represents an advantage of MR angiography over CT. Like DSA, contrast-enhanced MR angiography yields a luminal image that provides little information about the vessel wall or extravascular structures. Although additional conventional MR imaging does provide such information, it reveals little about the status of the lumen within a stent or about the stent itself due to susceptibility artifact. MR angiography tends to lead to overestimation of vascular narrowing, probably owing to spin dephasing caused by turbulent flow at a stenosis site and partial volume averaging effects (,Fig 9,) (,13). For quantitative analysis of stenosis, MIP images are widely used for displaying MR angiographic findings (,12,,14,16). However, stenosis can be overestimated on MIP images because the subtle signal intensity at the stenotic region is obscured by background signal intensity (,13). Review of the individual source images, image reformation in the transverse plane, or cross-sectional imaging is required for reliable analysis (,4,,17,,18). Monty et al (,19) reported that VR images were more accurate in detecting and quantifying renal artery stenosis than were MIP images because of improved vascular delineation. Ultrasonography US is a widely available, relatively inexpensive, and completely noninvasive technique for vascular imaging compared with other modalities. The advantage of US is that it provides information about blood flow as well as vessel morphology. The inherent limitations of US are that (a) sound waves cannot penetrate thick bone structures, dense calcification, or air; and (b) fat tissue can degrade vascular evaluation because of significant attenuation. Furthermore, US is dye boarding machine operator dependent, so quality assurance monitor final is necessary for reliable examination. The length of the sound wave emitted from the transducer determines spatial r esolution and attenuation. As the frequency of the sound wave increases, the wavelength decreases and the spatial resolution increases (,Table 1). However, the more the frequency increases, the more the ultrasound beam is attenuated. Therefore, a lower-frequency (2.53.5-MHz) transducer with lower spatial resolution should be used for adequate penetration of deeper structures such as the renal and iliac arteries. For superficial structures such as a carotid artery, a higher-frequency (710-MHz) transducer can be used, thereby allowing higher spatial resolution (,20). For quantifying vascular stenosis, both B-mode and Doppler US are used. B-mode US is used for anatomic evaluations such as vessel caliber, mural configuration, and relationship to extravascular structures. Cross-sectional images obtained perpendicular or longitudinal to the vessel are desirable. Doppler US is used to measure blood flow velocity. The basic principle of Doppler US is as follows: When sound waves are reflected from moving blood, the frequency and wavelength of the returning waves are shifted, a phenomenon known as Doppler shift (,21,,22). Accordingly, blood flow velocity can be calculated using a known Doppler shift value and incident angle. A small incident angle (?) of 60 or less (ie, cos ? ? 0.5) is essential to minimize measurement error (,Fig 10,) (,21). Blood flow velocity varies according to lumen status. The calculated velocity is used for characterizing arterial hemodynamics, since flow velocity usually increases in a stenotic lumen (,Fig 11). Thus, various velocity-related indices have been developed for grading stenosis, such as PSV and PSV ratio, the latter being calculated by dividing the PSV at or immediately downstream from the stenosis by the PSV upstream from the stenosis. An increase in either PSV or PSV ratio indicates stenosis. The pitfalls of blood flow velocity measurement are as follows: (a) the velocity is also influenced by clinical factors such as cardiac function; and (b) in cases of tandem stenoses, false-negative findings may occur at the distal stenosis due to decreased proximal flow. Both pitfalls may be partially eliminated by calculating PSV ratio instead of PSV. Intravascular US Because intravascular US is an invasive and relatively costly imaging modality, its major role in the clinical setting is limited to guiding various catheter- based interventions in patients with vascular disease (,23). Intravascular US can provide high-resolution images from inside the vessel (,Table 1). For a currently used (2040-MHz) transducer, the resolution is about .05.08 mm in an axial direction (ie, parallel to the ultrasound beam). Intravascular US can depict mural structures including the intima, media and adventitia, and atherosclerotic plaques, as well as help measure the luminal area (,Fig 12,) (,24,26). Transducer obliquity or a tortuous vascular course can result in suboptimal quality at oblique cross-sectional imaging, resulting in overestimation of dimensions and a false impression that the vessel is elliptic (,26). An intravascular US catheter that is larger than practicable for the lumen may fail to cross the stenotic lesion or cause mechanical disruption of plaques (,27). Stenosis is quantified with appropriately obtained cross-sectional images. Lumen measurements are made on the basis of the interface between the lumen (e cholucent region) and the leading edge of the intima (echogenic region). Both the cross-sectional area and the diameter of the lesion can be measured to calculate the degree of stenosis (,26). Quantification of Arterial Occlusive Disease in Selected Arteries Internal Carotid Artery In major clinical studies from the [place] Symptomatic Carotid Endarterectomy Trial (NASCET) and the Symptomatic Carotid Surgery Trial (ECST), it has been established that carotid endarterectomy is more effective than medical therapy in reducing stroke risk in symptomatic patients with severe (70%99%) carotid artery stenosis (,28,,29). Carotid endarterectomy may also be beneficial for asymptomatic patients with carotid artery stenosis of less than 60% (,30). Thus, quantification of stenosis of the ICA is important for patient treatment. Because the reference sites used to calculate the degree of diametric stenosis differ between the NASCET and the ECST (,Fig 13), it should be noted which reference site was used for quantification. US plays an important role in the evaluation of carotid artery stenosis because it is by far the most common imaging modality in this setting and carotid end arterectomy is performed solely on the basis of US findings at many institutions (,31,,32). A consensus statement by the Society of Radiologists in Ultrasound regarding US criteria for the diagnosis of ICA stenosis was recently published (,Fig 14,,,,,, ,Table 3) (,31). US measurement of flow velocity in the ICA has a specific pitfall: If an ICA has significant stenosis, a compensatory increase in blood flow frequently occurs in the contralateral ICA to maintain intracranial blood flow. Thus, overestimation of stenosis may occur in ICAs with less than 70% stenosis that are contralateral to ICAs with greater than 70% stenosis or an occlusion (,33). CT angiography and MR angiography are also reliable tools for detecting carotid artery stenosis (,34). These modalities are superior to US in that they are relatively objective, less dye boarding machine operator dependent, and allow arterial evaluation from the aortic arch to the intracranial arteries. The sensitivities and specificities of US, CT angiography, and MR angiography for detecting 70%99% stenosis of the ICA are compared with those of DSA in ,Table 4 (,35,,36). Although treatment strategy has been based on the results of large trials in which DSA was the standard of reference, the aforementioned minimally invasive modalities are now starting to replace DSA. Currently, stent placement is emerging as a treatment for ICA stenosis, and some suggest that it may be as effective as surgery (,37). Thus, DSA will remain as a diagnostic tool during endovascular therapy for ICA stenosis. Renal Arteries Because significant renal artery stenosis causing renovascular hypertension is potentially curable with vascular intervention (,38,40), quantification of the degree of stenosis is essential for patient treatment. Because it is difficult to visualize the entire main renal artery at US due to its deeper location, flow velocity measurements made with Doppler analysis are used for grading renal artery stenosis (,Fig 15,,,,,,, ,Table 5) (,40,,41). The reported sensitivities and specificities of Doppler US for detecting significant renal artery stenosis compared with DSA are 84%98% and 90%98%, respectively (,41,45). Specific drawbacks of US in evaluating the renal artery are (a) degrading factors such as interposition of bowel gas and obesity and (b) difficulty in visualizing accessory renal arteries that may play a role in the development of renovascular hypertension. CT angiography and contrast-enhanced MR angiography are reliable modalities for evaluating renal artery stenosis. In a study by Sukumar et al (,46), there was no significant difference between the two modalities in the detection of significant stenoses of the aortoiliac and renal arteries, each having a sensitivity and a specificity of approximately 92% and 99%, respectively. Furthermore, a meta-analysis indicated that both modalities were superior to US in detecting renal artery stenosis (,47). Noninvasive US can be used for screening and follow-up, whereas contrast-enhanced multidetector row CT angiography or MR angiography may become a first-line modality for scrutiny. The role of DSA will be limited to treatment-related procedures performed during percutaneous revascularization. Atherosclerotic stenosis most often involves the proximal one-third of the main renal arteries (,48), and the right renal artery tends to originate from the aorta anterolaterally whereas the left one does so posterolaterally or laterally (,49). Consequently, evaluation of renal artery stenosis with projection images requires an appropriate viewing angle to avoid overlap of the origins of the renal arteries with their parent artery, the aorta. In measuring the degree of renal artery stenosis with DSA, CT angiography, or MR angiography, the reference site should be a normal-looking segment proximal to the stenosis or distal to the poststenotic dilatation (,40). Lower Extremity Arteries Planning of a therapeutic procedure for patients with advanced peripheral occlusive disease requires information about the degree and length of the lesion and the configuration of the inflow and runoff vessels. Although the US diagnostic criteria for detecting significant stenosis of lower extremity arteries are based on Doppler US findings in many studies (,Table 6), consensus has not been reached on the validated cutoff value. Some studies apply a PSV ratio of 2.0 as a means of differentiating between stenoses of less than 50% diameter reduction and those of greater than 50% reduction, whereas others use 2.5 or 3.0 as a cutoff value (,50,,51). A meta-analysis by Cuong and Hunink (,50) compared the diagnostic performance of duplex US with that of conventional angiography in detecting significant stenosis from peripheral arterial occlusive disease. Duplex US demonstrated a sensitivity of 87.6% and a specificity of 94.7% and less discriminatory power than MR angiography. Furthermore, duplex US evaluation of the arteries of an entire lower extremity is dye boarding machine operator dependent and labor intensive and does not provide a road map equivalent to that provided by angiography. Thus, duplex US would be expected to play only a supplementary role in evaluating restricted segments of lower extremity arteries. Both multidetector row CT angiography and contrast-enhanced moving-bed MR angiography allow evaluation of the entire aortoiliac and lower extremity nasreen elsie in a single series. The recently reported sensitivities and specificities of fourdetector row CT angiography compared with DSA in detecting significant stenoses of the aortoiliac and lower extremity arteries are 91%99% and 83%99%, respectively (,10,,52,55), whereas those of contrast-enhanced MR angiography are 93%96% and 90%95%, respectively (,56,,57). The disadvantage of the two modalities is that the evaluation of infrapopliteal arteries might be suboptimal due to limited spatial resolution or venous contamination (,53,,55,,57). This problem may be overcome by using (a) CT scanners with 16 or more detector rows with submillimeter collimation, or (b) MR angiographic techniques such as additional dedicated imaging of calf arteries with a reduced field of view and sensitivity encoding (,58,,59). The feasibility of visualizing the course of the occluded segment is a great advantage of multidetector row CT angiography in planning vascular intervention or bypass surgery, especially for lower peripheral arteries (,Fig 16,,). A specific pitfall of multidetector row CT angiography can occur when the timing of scanning does not coincide with the arrival of contrast material in the targeted lower extremity arteries. This discrepancy may cause misdiagnosis or overestimation of stenotic occlusion in calf arteries due to insufficient luminal enhancement in conditions such as low cardiac output or aortic aneurysm. This problem may be overcome with additional scanning of calf arteries immediately following normal scanning (,Fig 17,). DSA has largely been replaced by other less invasive modalities for evaluating lower extremity arteries, although it may allow more accurate evaluation of small calf arteries with a higher spatial resolution. The role of DSA will also be limited to treatment-related procedures for vascular intervention in lower extremity arteries. Conclusions To obtain accurate measurements in arterial occlusive disease, it is essential to understand the technical considerations in quantitative measurement and to take advantage of the strengths and recognize the weaknesses of individual modalities. Precise quantification will allow optimization of therapy for patients with arterial occlusive disease. Table 1.Spatial Resolution of Various Imaging Modalities *Depends on acquisition protocol. Increases as frequency increases. Approximate value; the field of view, which also helps determine spatial resolution, varies depending on the target vessel. Table 1.Spatial Resolution of Various Imaging Modalities Table 2.Characteristics of Image Display Techniques Used with MultiDetector Row CT Angiography for Vascular Evaluation Table 2.Characteristics of Image Display Techniques Used with MultiDetector Row CT Angiography for Vascular Evaluation Table 3.Tavarez-Scale and Doppler US Criteria for Diagnosis of ICA Stenosis Source.Reference 31. *May be useful in cases of discrepant results in primary parameters due to technical or clinical factors. Based on angiographic criteria for measuring diameter stenosis in the NASCET. As determined with US. CCA = common carotid artery. ||EDV = end diastolic velocity. Table 3.Tavarez-Scale and Doppler US Criteria for Diagnosis of ICA Stenosis Table 4.US, CT Angiography, and MR Angiography versus DSA in the Detection of 70%99% Stenosis of the ICA Note.Numbers in parentheses indicate 95% confidence interval. *Data from reference 35. Data from reference 36. Table 4.US, CT Angiography, and MR Angiography versus DSA in the Detection of 70%99% Stenosis of the ICA Table 5.Duplex US Criteria for Diagnosis of Renal Artery Stenosis *Only one of the two criteria listed needs to be met for diagnosis. Table 5.Duplex US Criteria for Diagnosis of Renal Artery Stenosis Table 6.Duplex US Criteria for Diagnosis of Stenosis of Lower Extremity Arteries Table 6.Duplex US Criteria for Diagnosis of Stenosis of Lower Extremity Arteries Figure 1. Drawing illustrates measurements used to determine the degree of vascular stenosis. Rp and Rd indicate the luminal diameter or area in the normal-looking portion of the vessel proximal (Rp) and distal (Rd) to the stenotic lesion (L). Re is the estimated luminal diameter or area at the level of the lesion. Any of these valuesRp, Rd, or Recan be used as the reference value, and it should be noted which of the three is used. The percentage of stenosis is calculated as (1 ? L/R) 100, where L = lesion diameter or area and R = diameter or area at the reference site. Download as PowerPointOpen in Image Viewer Figure 2. Drawings illustrate how projection images (a, b) and a cross- sectional image (c) are used to measure the diameter of an eccentric arterial stenosis. In a, the minimum luminal diameter (Da) is depicted at the optimal projection angle. In b, the degree of stenosis is underestimated because the minimum luminal diameter (Db) is depicted at a suboptimal projection angle, making it larger than Da. The cross-sectional image is oriented perpendicular to the vessel and accurately depicts lumen morphology, making the minimum luminal diameter easy to measure. Da and Db in c correspond to the diameters measured in a and b. Download as PowerPointOpen in Image Viewer Figure 3. Graph (top) illustrates the relationship between area reduction and diameter reduction in a completely concentric stenosis. The relationship is described by the equation A = D (2 ? [D/100]), where A = percentage of area reduction and D = percentage of diameter reduction. Drawings at bottom illustrate cross-sectional views of lumina at various percentages of area and diameter stenosis. Download as PowerPointOpen in Image Viewer Figure 4a. Stenoses of the left external and right common iliac arteries in a 71-year-old woman. (a) Anteroposterior DSA image fails to depict stenosis of the left external iliac artery because of the enhancement of the overlying left internal iliac artery (straight arrow). However, stenosis of the right common iliac artery can be seen (curved arrow). (b) DSA image (30 right anterior oblique angle) allows differentiation of the enhanced left external iliac artery from the left internal iliac artery, demonstrating 60% diameter stenosis of the former artery (arrow) relative to the distal reference site (arrowhead). Download as PowerPointOpen in Image Viewer Figure 4b. Stenoses of the left external and right common iliac arteries in a 71-year-old woman. (a) Anteroposterior DSA image fails to depict stenosis of the left external iliac artery because of the enhancement of the overlying left internal iliac artery (straight arrow). However, stenosis of the right common iliac artery can be seen (curved arrow). (b) DSA image (30 right anterior oblique angle) allows differentiation of the enhanced left external iliac artery from the left internal iliac artery, demonstrating 60% diameter stenosis of the former artery (arrow) relative to the distal reference site (arrowhead). Download as PowerPointOpen in Image Viewer Figure 5a. (a) Drawing illustrates a tortuous vessel with upper concentric stenosis with surrounding mural calcification and lower eccentric stenosis with partial calcification. The two planes oriented perpendicular to the vessel indicate the levels at which cross-sectional images were obtained. The curved plane oriented longitudinally along the vessel indicates the cutting plane of the CPR image (cf e). (b) Drawings illustrate cross-sectional images (cf a), which accurately depict luminal configurations and mural calcifications, thereby allowing measurement of both diameter stenosis and area stenosis. (c) Drawing illustrates a VR image that provides a comprehensive overview of the vessel. The upper stenosis is partially hidden by mural calcification. (d) Drawing illustrates an MIP image; overlying mural calcification makes evaluation of the upper stenosis impossible. (e) Drawing illustrates a CPR image that depicts the upper stenosis with part of the surrounding mural calcification as well as the lower stenosis. Download as PowerPointOpen in Image Viewer Figure 5b. (a) Drawing illustrates a tortuous vessel with upper concentric tyalor nosis with surrounding mural calcification and lower eccentric stenosis with partial calcification. The two planes oriented perpendicular to the vessel indicate the levels at which cross-sectional images were obtained. The curved plane oriented longitudinally along the vessel indicates the cutting plane of the CPR image (cf e). (b) Drawings illustrate cross-sectional images (cf a), which accurately depict luminal configurations and mural calcifications, thereby allowing measurement of both diameter stenosis and area stenosis. (c) Drawing illustrates a VR image that provides a comprehensive overview of the vessel. The upper stenosis is partially hidden by mural calcification. (d) Drawing illustrates an MIP image; overlying mural calcification makes evaluation of the upper stenosis impossible. (e) Drawing illustrates a CPR image that depicts the upper stenosis with part of the surrounding mural calcification as well as the lower stenosis. Download as PowerPointOpen in Image Viewer Figure 5c. (a) Drawing illustrates a tortuous vessel with upper concentric stenosis with surrounding mural calcification and lower eccentric stenosis with partial calcification. The two planes oriented perpendicular to the vessel indicate the levels at which cross-sectional images were obtained. The curved plane oriented longitudinally along the vessel indicates the cutting plane of the CPR image (cf e). (b) Drawings illustrate cross-sectional images (cf a), which accurately depict luminal configurations and mural calcifications, thereby allowing measurement of both diameter stenosis and area stenosis. (c) Drawing illustrates a VR image that provides a comprehensive overview of the vessel. The upper stenosis is partially hidden by mural calcification. (d) Drawing illustrates an MIP image; overlying mural calcification makes evaluation of the upper stenosis impossible. (e) Drawing illustrates a CPR image that depicts the upper stenosis with part of the surrounding mural calcification as well as the lower stenosis. Download as PowerPointOpen in Image Viewer Figure 5d. (a) Drawing illustrates a tortuous vessel with upper concentric stenosis with surrounding mural calcification and lower eccentric stenosis with partial calcification. The two planes oriented perpendicular to the vessel indicate the levels at which cross-sectional images were obtained. The curved plane oriented longitudinally along the vessel indicates the cutting plane of the CPR image (cf e). (b) Drawings illustrate cross-sectional images (cf a), which accurately depict luminal configurations and mural calcifications, thereby allowing measurement of both diameter stenosis and area stenosis. (c) Drawing illustrates a VR image that provides a comprehensive overview of the vessel. The upper stenosis is partially hidden by mural calcification. (d) Drawing illustrates an MIP image; overlying mural calcification makes evaluation of the upper stenosis impossible. (e) Drawing illustrates a CPR image that depicts the upper stenosis with part of the surrounding mural calcification as well as the lower stenosis. Download as PowerPointOpen in Image Viewer Figure 5e. (a) Drawing illustrates a tortuous vessel with upper concentric stenosis with surrounding mural calcification and lower eccentric stenosis with partial calcification. The two planes oriented perpendicular to the vessel indicate the levels at which cross-sectional images were obtained. The curved plane oriented longitudinally along the vessel indicates the cutting plane of the CPR image (cf e). (b) Drawings illustrate cross-sectional images (cf a), which accurately depict luminal configurations and mural calcifications, thereby allowing measurement of both diameter stenosis and area stenosis. (c) Drawing illustrates a VR image that provides a comprehensive overview of the vessel. The upper stenosis is partially hidden by mural calcification. (d) Drawing illustrates an MIP image; overlying mural calcification makes evaluation of the upper stenosis impossible. (e) Drawing illustrates a CPR image that depicts the upper stenosis with part of the surrounding mural calcification as well as the lower stenosis. Download as PowerPointOpen in Image Viewer Figure 6a. Stenosis of the right external iliac artery in a 71-year-old man. The reformatted images in af were generated from multidetector row CT data obtained with semiautomated software ([employer], [employer]) for vascular analysis. (a) VR image provides an overview of the stenotic artery. The black line connects the midpoints of the cross-sectional vascular lumen and is drawn automatically after the starting point and endpoint of the target vessel have been plotted. Lines bd indicate the levels at which cross-sectional MPR images were obtained. (bd) Cross-sectional MPR images obtained at different levels (cf lines bd in a) demonstrate varying degrees of luminal enhancement (arrowhead). Both luminal diameter and area (shown as percentages) were calculated automatically after level d had been chosen as the reference site. (e) Stretched CPR image (left) shows the target vessel. Diagram (right) shows the calculated luminal area throughout the vessel (tavarez area). Lines bd indicate the levels at which the cross-sectional images were obtained (cf bd), with the corresponding area measurements given in square millimeters. (f ) CPR image shows the distribution of plaques and calcifications in the vessel (arrows), together with stenoses. (g) DSA image demonstrates 60% diameter stenosis in the proximal external iliac artery (b) and 70% diameter stenosis in the distal external iliac artery (c). Line d indicates the reference site. Download as PowerPointOpen in Image Viewer Figure 6b. Stenosis of the right external iliac artery in a 71-year-old man. The reformatted images in af were generated from multidetector row CT data obtained with semiautomated software ([employer], [employer]) for vascular analysis. (a) VR image provides an overview of the stenotic artery. The black line connects the midpoints of the cross-sectional vascular lumen and is drawn automatically after the starting point and endpoint of the target vessel have been plotted. Lines bd indicate the levels at which cross-sectional MPR images were obtained. (bd) Cross-sectional MPR images obtained at different levels (cf lines bd in a) demonstrate varying degrees of luminal enhancement (arrowhead). Both luminal diameter and area (shown as percentages) were calculated automatically after level d had been chosen as the reference site. (e) Stretched CPR image (left) shows the target vessel. Diagram (right) shows the calculated luminal area throughout the vessel (tavarez area). Lines bd indicate the levels at which the cross-sectional images were obtained (cf bd), with the corresponding area measurements given in square millimeters. (f ) CPR image shows the distribution of plaques and calcifications in the vessel (arrows), together with stenoses. (g) DSA image demonstrates 60% diameter stenosis in the proximal external iliac artery (b) and 70% diameter stenosis in the distal external iliac artery (c). Line d indicates the reference site. Download as PowerPointOpen in Image Viewer Figure 6c. Stenosis of the right external iliac artery in a 71-year-old man. The reformatted images in af were generated from multidetector row CT data obtained with semiautomated software ([employer], [employer]) for vascular analysis. (a) VR image provides an overview of the stenotic artery. The black line connects the midpoints of the cross-sectional vascular lumen and is drawn automatically after the starting point and endpoint of the target vessel have been plotted. Lines bd indicate the levels at which cross-sectional MPR images were obtained. (bd) Cross-sectional MPR images obtained at different levels (cf lines bd in a) demonstrate varying degrees of luminal enhancement (arrowhead). Both luminal diameter and area (shown as percentages) were calculated automatically after level d had been chosen as the reference site. (e) Stretched CPR image (left) shows the target vessel. Diagram (right) shows the calculated luminal area throughout the vessel (tavarez area). Lines bd indicate the levels at which the cross-sectional images were obtained (cf bd), with the corresponding area measurements given in square millimeters. (f ) CPR image shows the distribution of plaques and calcifications in the vessel (arrows), together with stenoses. (g) DSA image demonstrates 60% diameter stenosis in the proximal external iliac artery (b) and 70% diameter stenosis in the distal external iliac artery (c). Line d indicates the reference site. Download as PowerPointOpen in Image Viewer Figure 6d. Stenosis of the right external iliac artery in a 71-year-old man. The reformatted images in af were generated from multidetector row CT data obtained with semiautomated software ([employer], [employer]) for vascular analysis. (a) VR image provides an overview of the stenotic artery. The black line connects the midpoints of the cross-sectional vascular lumen and is drawn automatically after the starting point and endpoint of the target vessel have been plotted. Lines bd indicate the levels at which cross-sectional MPR images were obtained. (bd) Cross-sectional MPR images obtained at different levels (cf lines bd in a) demonstrate varying degrees of luminal enhancement (arrowhead). Both luminal diameter and area (shown as percentages) were calculated automatically after level d had been chosen as the reference site. (e) Stretched CPR image (left) shows the target vessel. Diagram (right) shows the calculated luminal area throughout the vessel (tavarez area). Lines bd indicate the levels at which the cross-sectional images were obtained (cf bd), with the corresponding area measurements given in square millimeters. (f ) CPR image shows the distribution of plaques and calcifications in the vessel (arrows), together with stenoses. (g) DSA image demonstrates 60% diameter stenosis in the proximal external iliac artery (b) and 70% diameter stenosis in the distal external iliac artery (c). Line d indicates the reference site. Download as PowerPointOpen in Image Viewer Figure 6e. Stenosis of the right external iliac artery in a 71-year-old man. The reformatted images in af were generated from multidetector row CT data obtained with semiautomated software ([employer], [employer]) for vascular analysis. (a) VR image provides an overview of the stenotic artery. The black line connects the midpoints of the cross-sectional vascular lumen and is drawn automatically after the starting point and endpoint of the target vessel have been plotted. Lines bd indicate the levels at which cross-sectional MPR images were obtained. (bd) Cross-sectional MPR images obtained at different levels (cf lines bd in a) demonstrate varying degrees of luminal enhancement (arrowhead). Both luminal diameter and area (shown as percentages) were calculated automatically after level d had been chosen as the reference site. (e) Stretched CPR image (left) shows the target vessel. Diagram (right) shows the calculated luminal area throughout the vessel (tavarez area). Lines bd indicate the levels at which the cross-sectional images were obtained (cf bd), with the corresponding area measurements given in square millimeters. (f ) CPR image shows the distribution of plaques and calcifications in the vessel (arrows), together with stenoses. (g) DSA image demonstrates 60% diameter stenosis in the proximal external iliac artery (b) and 70% diameter stenosis in the distal external iliac artery (c). Line d indicates the reference site. Download as PowerPointOpen in Image Viewer Figure 6f. Stenosis of the right external iliac artery in a 71-year-old man. The reformatted images in af were generated from multidetector row CT data obtained with semiautomated software ([employer], [employer]) for vascular analysis. (a) VR image provides an overview of the stenotic artery. The black line connects the midpoints of the cross-sectional vascular lumen and is drawn automatically after the starting point and endpoint of the target vessel have been plotted. Lines bd indicate the levels at which cross-sectional MPR images were obtained. (bd) Cross-sectional MPR images obtained at different levels (cf lines bd in a) demonstrate varying degrees of luminal enhancement (arrowhead). Both luminal diameter and area (shown as percentages) were calculated automatically after level d had been chosen as the reference site. (e) Stretched CPR image (left) shows the target vessel. Diagram (right) shows the calculated luminal area throughout the vessel (tavarez area). Lines bd indicate the levels at which the cross-sectional images were obtained (cf bd), with the corresponding area measurements given in square millimeters. (f ) CPR image shows the distribution of plaques and calcifications in the vessel (arrows), together with stenoses. (g) DSA image demonstrates 60% diameter stenosis in the proximal external iliac artery (b) and 70% diameter stenosis in the distal external iliac artery (c). Line d indicates the reference site. Download as PowerPointOpen in Image Viewer Figure 6g. Stenosis of the right external iliac artery in a 71-year-old man. The reformatted images in af were generated from multidetector row CT data obtained with semiautomated software ([employer], [employer]) for vascular analysis. (a) VR image provides an overview of the stenotic artery. The black line connects the midpoints of the cross-sectional vascular lumen and is drawn automatically after the starting point and endpoint of the target vessel have been plotted. Lines bd indicate the levels at which cross-sectional MPR images were obtained. (bd) Cross-sectional MPR images obtained at different levels (cf lines bd in a) demonstrate varying degrees of luminal enhancement (arrowhead). Both luminal diameter and area (shown as percentages) were calculated automatically after level d had been chosen as the reference site. (e) Stretched CPR image (left) shows the target vessel. Diagram (right) shows the calculated luminal area throughout the vessel (tavarez area). Lines bd indicate the levels at which the cross-sectional images were obtained (cf bd), with the corresponding area measurements given in square millimeters. (f ) CPR image shows the distribution of plaques and calcifications in the vessel (arrows), together with stenoses. (g) DSA image demonstrates 60% diameter stenosis in the proximal external iliac artery (b) and 70% diameter stenosis in the distal external iliac artery (c). Line d indicates the reference site. Download as PowerPointOpen in Image Viewer Figure 7a. Bilateral renal artery stenoses in a 59-year-old man. Multidetector row CT was performed following stent placement. (a) MIP image depicts bilateral indwelling stents in the renal arteries. However, it is impossible to evaluate the patency of the lumen within the stents. (b) Curved MPR image generated along the central line of the bilateral renal arteries clearly depicts luminal patency within the stents. Download as PowerPointOpen in Image Viewer Figure 7b. Bilateral renal artery stenoses in a 59-year-old man. Multidetector row CT was performed following stent placement. (a) MIP image depicts bilateral indwelling stents in the renal arteries. However, it is impossible to evaluate the patency of the lumen within the stents. (b) Curved MPR image generated along the central line of the bilateral renal arteries clearly depicts luminal patency within the stents. Download as PowerPointOpen in Image Viewer Figure 8a. 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 (a) MIP image from multidetector row CT data depicts severe bilateral calcifications in the iliac arteries. The degree of luminal stenosis is not assessable at any calcified site. (b) Cross-sectional image of the left external iliac artery from multidetector row CT data is suspicious for luminal stenosis (arrow). However, evaluation of the degree of stenosis is difficult even after setting the window width and level due to beam-hardening artifact from the severe calcification. (c) MIP image from contrast-enhanced MR angiographic data obtained at 30 right anterior and caudal oblique angles demonstrates 60% diameter stenosis of the left common iliac artery (arrow). Study negative for DVT in the right lower extremity. Final report to follow."
--- NOTE | 2018-11-04 12:51 | ER Document Report ---
ED General - General Chief Complaint: Leg Pain Stated Complaint: LEG PAIN Time Seen by Provider: 11/04/18 10:45 Mode of Arrival: Ambulatory TRAVEL OUTSIDE OF THE [place] IN LAST 30 DAYS: No - HPI Notes: Patient is a 68-year-old female comes in to the emergency department for evaluat ion of leg pain. She states it started 3 days ago. She points to her inguinal region. She stated radiates down the front of her leg. She denies any bowel or bladder incontinence, no saddle anesthesia, no focal numbness weakness. She has no back pain. No fevers. No injury to the area. No chest pain or difficulty breathing. She states she tried some ice to the area which actually made it fe el worse. She has not had any medications. - Related Data Allergies/Adverse Reactions: No Known Allergies Allergy (Verified 11/04/18 10:36) Past Medical History - General Information source: Patient - Social History Smoking Status: Never Smoker Family History: Reviewed & Not Pertinent Patient has suicidal ideation: No Patient has homicidal ideation: No - Past Medical History Cardiac Medical History: Denies: Hx Atrial Fibrillation, Hx Congestive Heart Failure, Hx Coronary Artery Disease, Hx DVT, Hx Heart Attack, Hx Hypercholesterolemia, Hx Hypertension, Hx Pulmonary Embolism Pulmonary Medical History: Reports: Hx COPD, Hx Pneumonia Denies: Hx Asthma, Hx Sleep Apnea Neurological Medical History: Denies: Hx Seizures Endocrine Medical History: Denies: Hx Diabetes Mellitus Type 1, Hx Diabetes Mellitus Type 2, Hx Hyperthyroidism, Hx Hypothyroidism Renal/ Medical History: Denies: Hx Peritoneal Dialysis GI Medical History: Denies: Hx Cirrhosis, Hx Gastroesophageal Reflux Disease, Hx Hepatitis Musculoskeletal Medical History: Denies Hx Arthritis Psychiatric Medical History: Denies: Hx Depression Infectious Medical History: Denies: Hx Hepatitis Past Surgical History: Reports: Hx Hysterectomy - Immunizations Hx Diphtheria, Pertussis, Tetanus Vaccination: No Hx Pneumococcal Vaccination: 08/07/12 Review of Systems - Review of Systems Constitutional: No symptoms reported EENT: No symptoms reported Cardiovascular: No symptoms reported Respiratory: No symptoms reported Gastrointestinal: No symptoms reported Genitourinary: No symptoms reported Musculoskeletal: See HPI Physical Exam - Vital signs Vitals: Temp Pulse Resp BP Pulse Ox 98.2 F 87 15 137/80 H 91 L 11/04/18 10:38 11/04/18 10:38 11/04/18 10:38 11/04/18 10:38 11/04/18 10:38 - Notes Notes: Vital signs reviewed, please refer to chart. Patient is normocephalic, atraumatic. Pupils equal round, reactive to light. Neck is supple without meningismus. Heart is regular rate and rhythm. Lungs are clear to auscultation bilaterally. Abdomen is soft, nontender, normoactive bowel sounds throughout. Extremities without cyanosis, clubbing, edema. Peripheral pulses are equal. Skin is warm and dry. Examination of the right inguinal region yields tenderness to palpation. There is no palpable hernias. Full passive and active range of motion, although active flexion of the hip does cause pain. Neurovascularly intact. No posterior calf tenderness. Course - Re-evaluation Re-evalutation: 11/04/18 14:00 Patient presents to the emergency department for evaluation. She had labs and imaging as ordered by the physician in triage. To me this seems only musculoskeletal in nature. She does have an antalgic gait. Her Doppler was negative. Her blood work was unremarkable. She was told to add moist heat to the area. We will send her home on Mobic and Robaxin. She is to follow-up with her doctor this week, return to the emergency department with worsening or new concerning symptoms of any sort. - Vital Signs Vital signs: Temp Pulse Resp BP Pulse Ox 98.5 F 85 16 103/61 91 L 11/04/18 13:30 11/04/18 13:30 11/04/18 13:30 11/04/18 13:30 11/04/18 10:38 - Laboratory Result Diagrams: 11/04/18 10:59 11/04/18 10:59 Laboratory results interpreted by me: 11/04/18 11/04/18 10:59 10:59 Hgb 16.0 H RDW 14.1 H Creatinine 0.39 L Discharge - Discharge Clinical Impression: Inguinal muscle strain Condition: Stable Disposition: HOME, SELF-CARE Instructions: Muscle Strain ([facility]) Additional Instructions: Moist heat to the painful area. Take medications as prescribed. Follow-up with your primary care physician this week. If you develop worsening or new concerning symptoms of any sort, return immediately to the emergency department for reevaluation. Prescriptions: Meloxicam [Mobic] 7.5 mg PO BID #14 tablet Methocarbamol [Robaxin-750] 750 mg PO TID #21 tablet
[2018-11-04 13:47] VITALS: BP 103/61
--- NOTE | 2018-11-05 10:43 | XCELERA REPORT ---
[address] [facility] [address] Lower Extremity Venous Evaluation Procedure: Color flow and duplex imaging of the veins of the right lower extremity as well as the left Common Femoral vein. Right Sided Venous Evaluation Normal vessel filling wall to wall, compression and augmentation as well as Colour flow down to the infrageniculate veins. Left Sided Venous Evaluation The left common femoral vein is fully compressible. Spontaneous and phasic flow is present in the left common femoral vein. Interpretation Summary No duplex evidence of DVT or obstruction in the right lower extremity nor in the left Common Femoral vein. Name: PRIYANK KAPOOR Age: 68 yrs Gender: Female : 1950 Patient Status: Preadmit Patient Location: ER Study Date: 11/04/2018 11:10 AM Reason For Study: R leg pain Ordering Physician: JERAD BOYLE Performed By: Jordan Yoder : JERAD BOYLE > Chet Delgado
== END 2018-11-04 13:45 | disposition home or self-care (01) ==
LOC: ER 10:33
DX: S76.819A Strain of other specified muscles, fascia and tendons at thigh level, unspecified thigh, initial encounter (principal); X58.XXXA Exposure to other specified factors, initial encounter
CPT/HCPCS: 36415; 80053; 85025; 93971; 99284

== ENCOUNTER 2020-01-10 11:13 | Emergency (ER) | payer SELFPAY ==
--- NOTE | 2020-01-10 11:46 | ER Document Report ---
ED Medical Screen (RME) - General Chief Complaint: Leg Pain Stated Complaint: LEG PAIN Time Seen by Provider: 01/10/20 11:43 Mode of Arrival: Ambulatory Information source: Patient Notes: I greeted and performed a rapid initial assessment of this patient. Comprehensive ED assessment and evaluation of the patient, analysis of test results and completion of the medical decision making process will be conducted by additional ED providers. TRAVEL OUTSIDE OF THE [place] IN LAST 30 DAYS: No - HPI Patient complains to provider of: Extremity pain and swelling Onset/Duration: Gradual, Persistent Quality of pain: Achy, Fullness, Pressure Pain Level: 4 Associated Symptoms: Body/muscle aches Exacerbated by: Movement, Walking Similar symptoms previously: Yes - Seen here 3 years ago for the same Notes: 01/10/20 11:44 This 69-year-old female who does not have a private physician who states that she has discomfort and inflammation to all 4 of her extremities as well as shortness of breath upon ambulation she has no chest pain and limited shortness of breath at this point in time - Related Data Allergies/Adverse Reactions: No Known Allergies Allergy (Verified 11/04/18 10:36) Past Medical History - General Information source: Patient - Social History Cigarette use (# per day): No Frequency of alcohol use: None Drug Abuse: None Family history: Reviewed & Not Pertinent - Past Medical History Cardiac Medical History: Denies: Hx Atrial Fibrillation, Hx Congestive Heart Failure, Hx Coronary Artery Disease, Hx DVT, Hx Heart Attack, Hx Hypercholesterolemia, Hx Hypertension, Hx Pulmonary Embolism Pulmonary Medical History: Reports: Hx COPD, Hx Pneumonia Denies: Hx Asthma, Hx Sleep Apnea Neurological Medical History: Denies: Hx Seizures Endocrine Medical History: Denies: Hx Diabetes Mellitus Type 1, Hx Diabetes Mellitus Type 2, Hx Hyperthyroidism, Hx Hypothyroidism Renal/ Medical History: Denies: Hx Peritoneal Dialysis GI Medical History: Denies: Hx Cirrhosis, Hx Gastroesophageal Reflux Disease, Hx Hepatitis Musculoskeltal Medical History: Denies Hx Arthritis Psychiatric Medical History: Denies: Hx Depression Infectious Medical History: Denies: Hx Hepatitis Past Surgical History: Reports: Hx Hysterectomy - Immunizations Hx Diphtheria, Pertussis, Tetanus Vaccination: No Physical Exam - Vital signs Vitals: Temp Pulse Resp BP Pulse Ox 98.6 F 86 18 154/85 H 96 01/10/20 11:21 01/10/20 11:21 01/10/20 11:21 01/10/20 11:21 01/10/20 11:21 - General General appearance: Appears well, Alert - Respiratory Breath sounds: Decreased air movement - Cardiovascular Rhythm: Regular Notes: +2 pitting edema Course - Vital Signs Vital signs: Temp Pulse Resp BP Pulse Ox 98.6 F 86 18 154/85 H 96 01/10/20 11:21 01/10/20 11:21 01/10/20 11:21 01/10/20 11:21 01/10/20 11:21
[2020-01-10 12:12] LABS: ABSOLUTE EOSINOPHILS # (AUTO) 0.1 10^3/uL (0.0-0.6); ABSOLUTE LYMPHOCYTES (AUTO) 1.5 10^3/uL (0.5-4.7); ABSOLUTE MONOCYTES (AUTO) 0.3 10^3/uL (0.1-1.4); ABSOLUTE NEUT (AUTO) 4.1 10^3/uL (1.7-8.2); BASOPHILS % (AUTO) 0.6 % (0-2); HEMATOCRIT 43.8 % (36.0-47.0); HEMOGLOBIN 15.2 g/dL (12.0-15.5); LYMPHOCYTES % (AUTO) 24.6 % (13-45); MEAN CORPUSCULAR HEMOGLOBIN 31.9 pg (27.0-33.4); MEAN CORPUSCULAR HGB CONC 34.6 g/dL (32.0-36.0); MEAN CORPUSCULAR VOLUME 92 fl (80-97); MONOCYTES % (AUTO) 5.7 % (3-13); PLATELET COUNT 277 10^3/uL (150-450); RED BLOOD COUNT 4.75 10^6/uL (3.72-5.28); RED CELL DISTRIBUTION WIDTH 12.8 % (11.5-14.0); SEGMENTED NEUTROPHILS % (AUTO) 68.1 % (42-78); TOTAL CELLS COUNTED % (AUTO) 100 %
--- NOTE | 2020-01-10 12:27 | RADIOLOGY REPORT (SQ) ---
EXAM DESCRIPTION: CHEST SINGLE VIEW IMAGES COMPLETED DATE/TIME: 01/10/2020 12:10 pm REASON FOR STUDY: pain sp fall COMPARISON: 08/07/2018 EXAM PARAMETERS: NUMBER OF VIEWS: One view. TECHNIQUE: Single frontal radiographic view of the chest acquired. RADIATION DOSE: NA LIMITATIONS: None. FINDINGS: LUNGS AND PLEURA: No opacities, masses or pneumothorax. No pleural effusion. MEDIASTINUM AND HILAR STRUCTURES: No masses. Contour normal. HEART AND VASCULAR STRUCTURES: Heart normal in size. Normal vasculature. BONES: No acute findings. HARDWARE: None in the chest. OTHER: No other significant finding. IMPRESSION: NO ACUTE RADIOGRAPHIC FINDING IN THE CHEST. TECHNICAL DOCUMENTATION: JOB ID: [id number] 2010 [employer]- All Rights Reserved Reading location - IP/workstation name: [email or web address]
[2020-01-10 12:30] LABS: ALBUMIN 3.8 g/dL (3.5-5.0); ALKALINE PHOSPHATASE 69 U/L (38-126); ANION GAP 9 (5-19); ASPARTATE AMINO TRANSFERASE 43 U/L (14-36); BILIRUBIN,DIRECT 0.1 mg/dL (0.0-0.4); BILIRUBIN,TOTAL 0.9 mg/dL (0.2-1.3); BLOOD UREA NITROGEN 12 mg/dL (7-20); CALCIUM 9.3 mg/dL (8.4-10.2); CARBON DIOXIDE 26 mmol/L (22-30); CHLORIDE 101 mmol/L (98-107); GLUCOSE 225 mg/dL (75-110); POTASSIUM 3.6 mmol/L (3.6-5.0); TOTAL PROTEIN 7.2 g/dL (6.3-8.2)
[2020-01-10] MEDS ORDERED: PREDNISONE 20 MG TABLET PO ONE (14:00)
[2020-01-10] MEDS ORDERED: IPRATROPIUM/ALBUTEROL 0.5-2.5 MG/3 ML AMPUL NEB ONE (14:00)
--- NOTE | 2020-01-10 14:05 | ER Document Report ---
ED General - General Chief Complaint: Leg Swelling Stated Complaint: LEG PAIN Time Seen by Provider: 01/10/20 11:43 Mode of Arrival: Ambulatory Notes: CHIEF COMPLAINT: 3 months of joint pain, intermittent shortness of breath HPI: 69-year-old female presenting with 3 months of intermittent joint pain all joints including ankles wrists knees and elbows. Worse with walking and movement. Has taken no medications for her symptoms. No swelling of the joints. Patient also with intermittent shortness of breath over that same timeframe. States that she did smoke for a long time. States she has heard herself wheezing, has not had a fever. Has not seen a PCP in the last 3 months for evaluation of these ongoing symptoms. Denies any chest discomfort at all ROS: See HPI - all other systems were reviewed and are otherwise negative Constitutional: no fever Eyes: no drainage, no blurred vision ENT: no runny nose, no sore throat Cardiovascular: no chest pain Resp: Positive SOB, positive cough GI: no vomiting, no diarrhea, no abdominal pain : no dysuria Integumentary: no rash Allergy: no hives Musculoskeletal: Positive extremity pain, no swelling Neurological: no numbness/tingling, no weakness MEDICATIONS: I agree with the patient medications as charted by the RN. ALLERGIES: I agree with the allergies as charted by the RN. PAST MEDICAL HISTORY/PAST SURGICAL HISTORY: Reviewed and agree as charted by RN. SOCIAL HISTORY: Reviewed and agree as charted by RN. FAMILY HISTORY: No significant familial comorbid conditions directly related to patient complaint EXAM: Reviewed vital signs as charted by RN. CONSTITUTIONAL: Alert and oriented and responds appropriately to questions. Well-appearing; well-nourished HEAD: Normocephalic; atraumatic EYES: PERRL; Conjunctivae clear, sclerae non-icteric ENT: normal nose; no rhinorrhea; moist mucous membranes; pharynx without lesions noted, no uvula edema or deviation, no tonsillar hypertrophy, phonation normal NECK: Supple without meningismus; non-tender; no cervical lymphadenopathy, no masses CARD: RRR; no murmurs, no clicks, no rubs, no gallops; symmetric distal pulses RESP: Normal chest excursion without splinting or tachypnea; breath sounds noted to have expiratory wheezing all lung castillo, no rhonchi, no rales, pulse oximetry 96% on room air not hypoxic ABD/GI: Normal bowel sounds; non-distended; soft, non-tender, no rebound, no guarding; no palpable organomegaly or masses. BACK: The back appears normal and is non-tender to palpation, there is no CVA tenderness EXT: Normal ROM in all joints; very mild tenderness on palpation of the bilateral knees, bilateral ankles, bilateral wrists and elbows without visible erythema effusion or edema SKIN: Normal color for age and race; warm; dry; good turgor; no acute lesions noted NEURO: Moves all extremities equally; Motor and sensory function intact PSYCH: The patient's mood and manner are appropriate. Grooming and personal hygiene are appropriate. MDM: 69-year-old female presenting with multiple complaints. Generalized joint pain for 3 months I suspect this is likely arthritic. She has no visible swelling of the joints. No overlying erythema to suggest a septic joint or rheumatologic condition. Initial screening labs done via triage process are negative for acute findings. Patient also with COPD history per the chart although patient denies lung problems but states she did smoke for a long time. She has active wheezing will give breathing treatment and steroids this is likely a mild COPD exacerbation longstanding. We will continue patient on albuterol, steroids which will also help her joint discomfort I referred her to a PCP for follow-up, low suspicion for ACS TRAVEL OUTSIDE OF THE [place] IN LAST 30 DAYS: No - Related Data Allergies/Adverse Reactions: No Known Allergies Allergy (Verified 11/04/18 10:36) Past Medical History - General Information source: Patient - Social History Smoking Status: Current Every Day Smoker Cigarette use (# per day): No Frequency of alcohol use: None Drug Abuse: None Family History: Reviewed & Not Pertinent Patient has homicidal ideation: No - Past Medical History Cardiac Medical History: Denies: Hx Atrial Fibrillation, Hx Congestive Heart Failure, Hx Coronary Artery Disease, Hx DVT, Hx Heart Attack, Hx Hypercholesterolemia, Hx Hypertension, Hx Pulmonary Embolism Pulmonary Medical History: Reports: Hx COPD, Hx Pneumonia Denies: Hx Asthma, Hx Sleep Apnea Neurological Medical History: Denies: Hx Seizures Endocrine Medical History: Denies: Hx Diabetes Mellitus Type 1, Hx Diabetes Mellitus Type 2, Hx Hyperthyroidism, Hx Hypothyroidism Renal/ Medical History: Denies: Hx Peritoneal Dialysis GI Medical History: Denies: Hx Cirrhosis, Hx Gastroesophageal Reflux Disease, Hx Hepatitis Musculoskeletal Medical History: Denies Hx Arthritis Psychiatric Medical History: Denies: Hx Depression Infectious Medical History: Denies: Hx Hepatitis Past Surgical History: Reports: Hx Hysterectomy - Immunizations Hx Diphtheria, Pertussis, Tetanus Vaccination: No Hx Pneumococcal Vaccination: 08/07/12 Physical Exam - Vital signs Vitals: Temp Pulse Resp BP Pulse Ox 98.6 F 86 18 154/85 H 96 01/10/20 11:21 01/10/20 11:21 01/10/20 11:21 01/10/20 11:21 01/10/20 11:21 Course - Vital Signs Vital signs: Temp Pulse Resp BP Pulse Ox 98.6 F 86 18 154/85 H 96 01/10/20 11:43 01/10/20 11:21 01/10/20 11:21 01/10/20 11:21 01/10/20 11:21 - Laboratory Result Diagrams: 01/10/20 12:00 01/10/20 12:00 Laboratory results interpreted by me: 01/10/20 12:00 Sodium 135.6 L Creatinine 0.48 L Glucose 225 H AST 43 H ALT 54 H Discharge - Discharge Clinical Impression: Chronic joint pain, COPD exacerbation Condition: Stable Disposition: HOME, SELF-CARE Instructions: Chronic Obstructive Lung Disease ([facility]), Arthritis ([facility]) Additional Instructions: Use the albuterol inhaler 2 puffs every 4 hours as needed for wheezing or shortness of breath. Stop smoking. Take Tylenol 1 g every 6 hours to help with joint pain. Take the steroids to help with both the joint pain and the breathing issues. Follow-up with a primary care provider for reevaluation of symptoms return for worsening condition Prescriptions: Prednisone [Deltasone 20 mg Tablet] 2 tab PO DAILY 5 Days #10 tablet Albuterol Sulfate [Proair HFA Inhalation Aerosol 8.5 gm MDI] 2 puff IH Q4H PRN #1 mdi PRN Reason: Referrals: LASHAY GARCIA MD [ACTIVE STAFF] - Follow up as needed
[2020-01-10 14:08] VITALS: BP 145/76
== END 2020-01-10 14:57 | disposition home or self-care (01) ==
LOC: ER 11:13
DX: M25.571 Pain in right ankle and joints of right foot (principal); M25.572 Pain in left ankle and joints of left foot; M25.531 Pain in right wrist; M25.532 Pain in left wrist; M25.561 Pain in right knee; M25.562 Pain in left knee; M25.521 Pain in right elbow; M25.522 Pain in left elbow; G89.29 Other chronic pain; J44.1 Chronic obstructive pulmonary disease with (acute) exacerbation; I25.10 Atherosclerotic heart disease of native coronary artery without angina pectoris; I10 Essential (primary) hypertension; F17.200 Nicotine dependence, unspecified, uncomplicated
CPT/HCPCS: 94640; 99285; 36415; 85025; 80053; 84484; 71045; J7512; J7620

== ENCOUNTER 2020-07-07 11:06 | Emergency (ER) | payer SELFPAY ==
[2020-07-07 11:16] VITALS: BP 116/80
--- NOTE | 2020-07-07 11:30 | ER Document Report ---
ED Medical Screen (RME) - General Chief Complaint: Leg Pain Stated Complaint: LEG PAIN Time Seen by Provider: 07/07/20 11:16 TRAVEL OUTSIDE OF THE [place] IN LAST 30 DAYS: No - HPI Notes: 07/07/20 11:27 69-year-old female presents to the emergency room for complaints of right leg pain and swelling that has become progressively worse over the last 3 weeks. Patient states she has tried [id number] Tylenol and ibuprofen without relief. Denies any trauma or fall. Patient typically ambulates around with a walker but she has been having to use a wheelchair due to pain being 5 out of 5. Patient is unsure she is a diabetic, she does not take any medications however in her chart states that she is supposed to be taking Metformin. Denies any chest pain or shortness of breath. Reports that swelling has been getting progressively worse. Reports she has had left knee and leg pain for the last 3 years, she supposed be following up with an record retrieval specialist in [place] at the end of this month. Denies any chest pain, shortness of breath, nausea, vomiting, diarrhea. Denies any fevers or chills. I have greeted and performed a rapid initial assessment of this patient. A comprehensive ED assessment and evaluation of the patient, analysis of test results and completion of the medical decision making process will be conducted by additional ED providers. PHYSICAL EXAMINATION: GENERAL: Well-appearing, well-nourished and in no acute distress. Musculoskeletal: Normal range of motion. Bilateral pedal edema, nonpitting. Distal pulses +2 bilaterally equally. Tenderness to right calf on palpation, positive Homans' sign. NEUROLOGICAL: Normal speech, wheelchair bound SKIN: Warm, Dry, normal turgor, no rashes or lesions noted. - Related Data Allergies/Adverse Reactions: No Known Allergies Allergy (Verified 07/07/20 11:17) Past Medical History - Social History Family history: Reviewed & Not Pertinent - Past Medical History Cardiac Medical History: Denies: Hx Atrial Fibrillation, Hx Congestive Heart Failure, Hx Coronary Artery Disease, Hx DVT, Hx Heart Attack, Hx Hypercholesterolemia, Hx Hypertension, Hx Pulmonary Embolism Pulmonary Medical History: Reports: Hx COPD, Hx Pneumonia Denies: Hx Asthma, Hx Sleep Apnea Neurological Medical History: Denies: Hx Seizures Endocrine Medical History: Denies: Hx Diabetes Mellitus Type 1, Hx Diabetes Mellitus Type 2, Hx Hyperthyroidism, Hx Hypothyroidism Renal/ Medical History: Denies: Hx Peritoneal Dialysis GI Medical History: Denies: Hx Cirrhosis, Hx Gastroesophageal Reflux Disease, Hx Hepatitis Musculoskeltal Medical History: Denies Hx Arthritis Psychiatric Medical History: Denies: Hx Depression Infectious Medical History: Denies: Hx Hepatitis Past Surgical History: Reports: Hx Hysterectomy - Immunizations Hx Diphtheria, Pertussis, Tetanus Vaccination: No Physical Exam - Vital signs Vitals: Temp Pulse Resp BP Pulse Ox 98.2 F 98 16 116/80 97 07/07/20 11:15 07/07/20 11:15 07/07/20 11:15 07/07/20 11:15 07/07/20 11:15 Course - Vital Signs Vital signs: Temp Pulse Resp BP Pulse Ox 98.2 F 98 16 116/80 97 07/07/20 11:15 07/07/20 11:15 07/07/20 11:15 07/07/20 11:15 07/07/20 11:15
--- NOTE | 2020-07-07 12:07 | RADIOLOGY REPORT (SQ) ---
EXAM DESCRIPTION: KNEE RIGHT 4 VIEWS IMAGES COMPLETED DATE/TIME: 07/07/2020 11:51 am REASON FOR STUDY: R knee pain x 3 weeks COMPARISON: None. NUMBER OF VIEWS: Four views. TECHNIQUE: AP, lateral, and both oblique radiographic images acquired of the right knee. LIMITATIONS: None. FINDINGS: MINERALIZATION: Normal. BONES: No acute fracture or dislocation. No worrisome bone lesions. No significant osteophytes. JOINT: Joint effusion. OTHER: No other significant finding. IMPRESSION: Joint effusion. TECHNICAL DOCUMENTATION: JOB ID: [id number] 2010 [employer]- All Rights Reserved Reading location - IP/workstation name: [email or web address]
[2020-07-07] MEDS ORDERED: METHYLPREDNISOLONE INJ 125 MG/2 ML SDV IV ONE (12:42)
[2020-07-07] MEDS ORDERED: KETOROLAC TROMETHAMINE INJ/PF 30 MG/1 ML SDV IV ONE (12:44)
--- NOTE | 2020-07-07 12:46 | RADIOLOGY REPORT (SQ) ---
EXAM DESCRIPTION: VENOUS UNILATERAL LOWER IMAGES COMPLETED DATE/TIME: 07/07/2020 12:39 pm REASON FOR STUDY: right leg pain and swelling 3 weeks COMPARISON: None. 11/04/2018 TECHNIQUE: Dynamic and static saba scale and color images acquired of the right leg venous system. S elected spectral images acquired with additional compression and augmentation maneuvers. The contrala teral common femoral vein and saphenofemoral junction were also imaged. Images stored on PACS. LIMITATIONS: None. FINDINGS: COMMON FEMORAL: Normal phasicity, compression and augmentation. No visualized echogenic ma terial on saba scale. No defects on color images. FEMORAL: Normal compression and augmentation. No visualized echogenic material on saba scale. No defe cts on color images. POPLITEAL: Normal compression, augmentation. No visualized echogenic material on saba scale. No defec ts on color images. CALF VESSELS: Normal compression, augmentation. No visualized echogenic material on saba scale. No de fects on color images. GSV and SSV: Normal compression, augmentation. No visualized echogenic material on saba scale. No def ects on color images. ANY DEEP VENOUS INSUFFICIENCY: Not evaluated. ANY EVIDENCE OF POPLITEAL CYST: No. OTHER: No other significant finding. CONTRALATERAL COMMON FEMORAL VEIN AND SAPHENOFEMORAL JUNCTION: Normal phasicity, compression and augmentation. No visualized echogenic material on saba scale. No de fects on color images. IMPRESSION: NO EVIDENCE DVT OR SVT IN THE RIGHT LEG. TECHNICAL DOCUMENTATION: JOB ID: [id number] 2010 [employer]- All Rights Reserved Reading location - IP/workstation name: [email or web address]
[2020-07-07 13:29] LABS: ABSOLUTE LYMPHOCYTES (AUTO) 1.8 10^3/uL (0.5-4.7); ABSOLUTE MONOCYTES (AUTO) 0.7 10^3/uL (0.1-1.4); ABSOLUTE NEUT (AUTO) 5.4 10^3/uL (1.7-8.2); BASOPHILS % (AUTO) 0.3 % (0-2); EOSINOPHILS % (AUTO) 0.5 % (0-6); HEMATOCRIT 42.3 % (36.0-47.0); HEMOGLOBIN 14.7 g/dL (12.0-15.5); LYMPHOCYTES % (AUTO) 22.6 % (13-45); MEAN CORPUSCULAR HEMOGLOBIN 32.5 pg (27.0-33.4); MEAN CORPUSCULAR HGB CONC 34.9 g/dL (32.0-36.0); MEAN CORPUSCULAR VOLUME 93 fl (80-97); MONOCYTES % (AUTO) 9.2 % (3-13); PLATELET COUNT 385 10^3/uL (150-450); RED BLOOD COUNT 4.53 10^6/uL (3.72-5.28); RED CELL DISTRIBUTION WIDTH 13.7 % (11.5-14.0); SEGMENTED NEUTROPHILS % (AUTO) 67.4 % (42-78); TOTAL CELLS COUNTED % (AUTO) 100 %
--- NOTE | 2020-07-07 13:40 | ER Document Report ---
Entered by ALEJANDRA BALTAZAR SCRIBE 07/07/20 1241 Acting as scribe for:MATT WATERMAN MD ED General - General Chief Complaint: Knee Pain Stated Complaint: LEG PAIN Time Seen by Provider: 07/07/20 11:16 Mode of Arrival: Ambulatory Information source: Patient Notes: This 69 year old female patient with RA presents to the emergency department today with complaints of left knee pain for the last 2 to 3 years and right knee pain for the last 3 weeks. Patient is on Metformin 500 mg twice daily, prednisone 10 mg daily, pregabalin 75 mg 3 times daily, simvastatin 20 mg daily, these medications were last filled on 05/01/2020 so she has been out of her medications for 5 to 6 weeks. Patient states she stopped taking the prednisone because it was not helping her pain. TRAVEL OUTSIDE OF THE [place] IN LAST 30 DAYS: No - Related Data Allergies/Adverse Reactions: No Known Allergies Allergy (Verified 07/07/20 11:17) Past Medical History - General Information source: Patient - Social History Smoking Status: Current Every Day Smoker Cigarette use (# per day): Yes Frequency of alcohol use: None Drug Abuse: None Lives with: Family Family History: Reviewed & Not Pertinent Pulmonary Medical History: Reports: Hx COPD, Hx Pneumonia Past Surgical History: Reports: Hx Hysterectomy - Immunizations Hx Diphtheria, Pertussis, Tetanus Vaccination: No Hx Pneumococcal Vaccination: 08/07/12 Review of Systems - Review of Systems Constitutional: No symptoms reported EENT: No symptoms reported Cardiovascular: No symptoms reported Respiratory: No symptoms reported Gastrointestinal: No symptoms reported Genitourinary: No symptoms reported Female Genitourinary: No symptoms reported Musculoskeletal: See HPI, Joint pain Skin: No symptoms reported Hematologic/Lymphatic: No symptoms reported Neurological/Psychological: No symptoms reported -: Yes All other systems reviewed and negative Physical Exam - Vital signs Vitals: Temp Pulse Resp BP Pulse Ox 98.2 F 98 16 116/80 97 07/07/20 11:15 07/07/20 11:15 07/07/20 11:15 07/07/20 11:15 07/07/20 11:15 - Notes Notes: Physical Exam: General: Alert, appears well. HEENT: Normocephalic. Atraumatic. PERRL. Extraocular movements intact. Oroph arynx clear. Neck: Supple. Non-tender. Respiratory: No respiratory distress. Clear and equal breath sounds bilaterally. Cardiovascular: Regular rate and rhythm. Abdominal: Obese. Non-tender. No distension. Normal Bowel Sounds. Back: Kyphosis. No gross abnormalities. Extremities: Moves all four extremities. Upper extremities: Pain at the base of the 1st mcp on the left. Lower extremities: 2+ edema to the RLE. There is a right knee effusion, it is not warm or red. 1+ edema of the RLE. Neurological: Normal cognition. AAOx4. Normal speech. Psychological: Normal affect. Normal Mood. Skin: Warm. Dry. Normal color. Course - Re-evaluation Re-evalutation: 07/07/20 14:20 ESR is 87, CRP is 133 - Vital Signs Vital signs: Temp Pulse Resp BP Pulse Ox 98.2 F 98 16 116/80 97 07/07/20 11:15 07/07/20 11:15 07/07/20 11:15 07/07/20 11:15 07/07/20 11:15 - Laboratory Result Diagrams: 07/07/20 13:00 07/07/20 13:00 Laboratory results interpreted by me: 07/07/20 07/07/20 07/07/20 11:34 13:00 13:00 ESR 87 H Sodium 133.5 L Potassium 3.1 L Chloride 97 L Creatinine 0.38 L POC Glucose 112 H C-Reactive Protein 133.4 H Discharge - Discharge Clinical Impression: Rheumatoid arthritis flare, Effusion, right knee, Hypokalemia Condition: Stable Disposition: HOME, SELF-CARE Additional Instructions: Rheumatoid Arthritis Your symptoms are probably due to rheumatoid arthritis. This is an inf lammation of the joints caused by your body's immune system. We don't know why rheumatoid arthritis occurs. The hands, feet, and knees are most often involved. Joints become swollen, stiff, and tender. Rheumatoid arthritis often has other symptoms such as low- grade fever, fatigue, and anemia (low red blood cell count). Arthritis is treated with antiinflammatory medication. We usually start with a non-steroid medicine such as ibuprofen or one of its relatives. The symptoms may spontaneously get better or worse from time to time. There is no permanent cure. Stronger antiinflammatory medicines may be added if the symptoms worsen. This can include cortisone medication, gold shots, immune suppressants, and other types of antiinflammatory medicine. Local warmth may be helpful. Move the involved joints through the full range of motion daily. Mild exercise is usually still possible for most persons with arthritis (ask your physician). Swimming provides good exercise without damaging the joints. Contact the physician if you are worsening in any way. Hypokalemia You have an abnormally decreased level of serum potassium. Hypokalemia may cause weakness, fatigue, or heart rhythm abnormalities. Sometimes there are no symptoms at all. Usually, low serum potassium is due to taking diuretics (water pills). It can also be due to excessive vomiting or diarrhea. If no obvious cause is evident, further evaluation will be necessary. Treatment is usually oral potassium supplements. Take these exactly as prescribed. You may also want to select foods which are naturally high in potassium -- fruits (such as bananas, cantaloupe, grapes, oranges, prunes, lukasz atoes), fresh vegetables (potatoes, spinach, beans, peas), orange or tomato juice, tomato pasta sauce, milk, fish (halibut, tuna, salmon, malik) A follow-up blood test is usually performed to assure that the potassium is returning to normal. Call the physician if you suffer severe weakness, muscle twitching or cramping, palpitations (pounding or irregular heartbeat), or any other new or alarming symptoms. Take the prednisone as prescribed. It will last you for 10 days. Increase potassium in your diet. Follow-up with your primary care provider later this week or the first of next week before you run out of the prednisone. Talk with your doctor about starting you back on all of your regular medications. Your hemoglobin A1c was 5.0, so you may not need to be on Metformin. RETURN TO THE EMERGENCY ROOM IF ANY NEW OR WORSENING SYMPTOMS. Prescriptions: Prednisone [Deltasone 20 mg Tablet] 20 mg PO ASDIR PRN #15 tablet PRN Reason: I personally performed the services described in the documentation, reviewed and edited the documentation which was dictated to the scribe in my presence, and it accurately records my words and actions.
[2020-07-07 13:43] LABS: ALBUMIN 3.6 g/dL (3.5-5.0); ALKALINE PHOSPHATASE 61 U/L (38-126); ANION GAP 7 (5-19); ASPARTATE AMINO TRANSFERASE 17 U/L (14-36); BILIRUBIN,DIRECT 0.2 mg/dL (0.0-0.4); BLOOD UREA NITROGEN 7 mg/dL (7-20); CALCIUM 9.5 mg/dL (8.4-10.2); CARBON DIOXIDE 30 mmol/L (22-30); CHLORIDE 97 mmol/L (98-107); GLUCOSE 95 mg/dL (75-110); POTASSIUM 3.1 mmol/L (3.6-5.0); TOTAL PROTEIN 6.8 g/dL (6.3-8.2); URIC ACID 6.4 mg/dL (2.5-7.5)
[2020-07-07 13:53] LABS: C-REACTIVE PROTEIN 133.4 mg/L (<10.0)
[2020-07-07 14:06] LABS: ERYTHROCYTE SEDIMENTATION RATE 87 mm/hr (0-30)
[2020-07-07] MEDS ORDERED: POTASSIUM CHLORIDE 20 MEQ PACKET PO ONE (14:22)
== END 2020-07-07 15:00 | disposition home or self-care (01) ==
LOC: ER 11:06
DX: M06.9 Rheumatoid arthritis, unspecified (principal); M25.461 Effusion, right knee; E87.6 Hypokalemia; M25.562 Pain in left knee; Z79.899 Other long term (current) drug therapy; F17.210 Nicotine dependence, cigarettes, uncomplicated; J44.9 Chronic obstructive pulmonary disease, unspecified
CPT/HCPCS: 99285; 96374; 96375; 36415; 82962; 84550; 85025; 85652; 86140; 80053; 83036; 93971; 73564; J2930; J1885; J3490

== ENCOUNTER → 2020-08-17 | Outpatient (CLI) | payer SELFPAY ==
[2020-08-17 09:28] VITALS: BP 145/79
--- NOTE | 2020-08-17 09:28 | ER RDC ASSESSMENT REPORT ---
Intake - In the Last 14 days Have you traveled outside [place]?: No Have you been in close contact with someone CONFIRMED: Yes Worked in Healthcare?: No - Symptoms Subjective Fever([place] feverish): No Chills: No Muscule Aches: No Runny Nose: No Sore Throat: No Cough (New or worsening chronic cough): No Shortness of breath: No Nausea or Vomiting: No Headache: No Abdominal Pain: No Diarrhea(3 or more loose stools in last 24 hours): No - Do you have any of the following Chronic lung disease: Asthma or emphysema or COPD: No Cystic Fibrosis: No Diabetes: No High Blood Pressure: No Cardiovascular Disease: No Chronic Kidney Disease: No Chronic Liver Disease: No Chronic blood disorder like Sickle Cell Disease: No Weak immune system due to disease or medication: No Neurologic condition that limits movement: No Developmental delay - Moderate to Severe: No Recent (within past 2 weeks) or current : No Morbid Obesity (>100 pounds over ideal weight): No Obesity Comment: Height 4 feet 9 inches weight 155 pounds - Objective Temperature: 98.7 F Pulse Rate: 98 Respiratory Rate: 16 Blood Pressure: 145/79 O2 Sat by Pulse Oximetry: 97 Objective: Given above, testing performed: If Testing Performed: Test Specimen Type Sent to General - General Information source: Patient Notes: Patient here at [facility] for Covid testing patient reports neighbor has tested positive for Covid and keeps coming over to visit her at her house patient is concerned about her exposure. Patient denies any symptoms at this point. Patient's family member also living at the house was tested at the ER yesterday with no symptoms and reports her test is negative. Patient denies any known local PCP. Patient smokes a pack a day. - Related Data Allergies/Adverse Reactions: No Known Allergies Allergy (Verified 07/07/20 11:17) Past Medical History - General Information source: Patient - Social History Smoking Status: Current Every Day Smoker - smokes a pack a day Smoking Education Provided: Yes - Stop smoking Family History: Reviewed & Not Pertinent - Past Medical History Cardiac Medical History: Denies: Hx Atrial Fibrillation, Hx Congestive Heart Failure, Hx Coronary Artery Disease, Hx DVT, Hx Heart Attack, Hx Hypercholesterolemia, Hx Hypertension, Hx Pulmonary Embolism Pulmonary Medical History: Reports: Hx COPD, Hx Pneumonia Denies: Hx Asthma, Hx Sleep Apnea Neurological Medical History: Denies: Hx Seizures Endocrine Medical History: Denies: Hx Diabetes Mellitus Type 1, Hx Diabetes Mellitus Type 2, Hx Hyperthyroidism, Hx Hypothyroidism Renal/ Medical History: Denies: Hx Peritoneal Dialysis GI Medical History: Denies: Hx Cirrhosis, Hx Gastroesophageal Reflux Disease, Hx Hepatitis Musculoskeletal Medical History: Denies Hx Arthritis Psychiatric Medical History: Denies: Hx Depression Infectious Medical History: Denies: Hx Hepatitis Past Surgical History: Reports: Hx Hysterectomy Physical Exam - General General appearance: Appears well, Alert In distress: None Notes: PHYSICAL EXAMINATION: GENERAL: Well-appearing and in no acute distress. HEAD: Atraumatic, normocephalic. EYES: sclera anicteric, conjunctiva are normal. ENT: nares patent. Moist mucous membranes. NECK: Normal range of motion, supple without lymphadenopathy LUNGS: CTAB and equal. No wheezes rales or rhonchi. Respirations even and un labored lung sounds clear. HEART: Regular rate and rhythm without murmurs ABDOMEN: Soft, nontender, normal bowel sounds, no guarding. EXTREMITIES: Normal range of motion, no pitting edema. No cyanosis. NEUROLOGICAL: Cranial nerves grossly intact. Normal speech. Normal gait. PSYCH: Normal mood, normal affect. SKIN: Warm, Dry, normal turgor, no rashes or lesions noted Diagnostic Results Laboratory Results: Pending Covid testing results. Patient provided instructions regarding Covid to include: As a person under investigation for Covid 19, the [place] department of Health and Human Services, division of public health advises you to adhere to the following guidance until your test results are reported to you. If your test result is positive, you will receive additional information from your provider and your local health department at that time. Remain at home until you are cleared by the health provider or public health authorities. Keep a log of visitors to your home, notify any visitors to your home of your isolation status. If you plan to move to a new address or leave the county, notify the local health department in your County. Call your doctor or seek care if you have an urgent medical need. Before seeking medical care, call ahead to get instructions from the provider before arriving at the medical office clinic or hospital. Notify them that you are being tested for the virus that causes Covid 19 so that arrangements can be made, as necessary, to prevent transmission to others in the healthcare setting. Next, notify the local health department in your county. If a medical emergency arises and you need to call 911, inform the first responders that you are being tested for the virus that causes Covid 19. Next, notify the local health department in your county. Patient Education/Counseling Counseling/Education: Patient presents with upper respiratory symptoms worrisome for possible Covid 19. Patient does not have emergency worring symptoms such as difficulty breathing, shortness of breath, chest pain, pressure, confusion or cyanosis. Patient appears suitable for discharge. Patient instructed to follow-up at urgent care or ED for any worsening or change in condition. Patient's vital signs are stable and patient is nontoxic in appearance. Good return precautions have been discussed with patient, patient verbalized understanding and is agreeable with discharge plan of care at this time. RDC Discharge - Discharge Clinical Impression: Encounter for screening laboratory testing for COVID-19 virus in asymptomatic patient Condition: Stable Disposition: Home; Selfcare
== END ==
LOC: RDC 08:44
PROVIDERS: ATTEND Nurse Practitioner Family
DX: Z20.822 Contact with and (suspected) exposure to COVID-19 (principal); F17.210 Nicotine dependence, cigarettes, uncomplicated; Z71.6 Tobacco abuse counseling; J44.9 Chronic obstructive pulmonary disease, unspecified; Z87.01 Personal history of pneumonia (recurrent)
CPT/HCPCS: 87635; C9803; 99202; 99211